=== PATIENT | male | born 1965 | race Caucasian/White ===

== ENCOUNTER 2018-06-25 10:20 | Emergency (ER) | payer SELFPAY ==
[2018-06-25 10:21] VITALS: BP 151/108; PULSE 83; RESP 18; TEMP 36.5; O2SAT 98; BMI 21.9
--- NOTE | 2018-06-25 10:35 | RAD_ITS ---
STUDY: X-RAY CHEST REASON FOR EXAM: Male, 52 years old. Chest pain TECHNIQUE: Single AP portable view of the chest. COMPARISON: None. FINDINGS: Cardiac monitoring leads overlie the chest. There is a subtle 1.8 cm rounded density adjacent to the left heart border. Question true nodule versus superimposition of structures. There is no demonstrated pleural abnormality. Normal size heart. Normal mediastinum and marlena. Normal visualized pulmonary arteries. There is mild calcification of the aortic arch. Normal visualized thoracic spine. Normal visualized ribs, clavicles, and shoulders. There is no demonstrated abnormality of the visualized soft tissue structures of the upper abdomen. RAD/Chest 1 View (Portable) IMPRESSION: Question nodule within the left mid to lower lung versus artifact from superimposed structures. A CT of the chest can be performed for further evaluation. Electronically Signed: Julio Watkins DO at 11:13 EDT Tel , Service support ,
--- NOTE | 2018-06-25 10:36 | ED.VISSUMM ---
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 was quite hot yesterday and today, nothing really makes the pain better or worse it is not exertional or sedation with any specific activity or food, he has no history of ND PE or DVT he does report family history and reports he is a smoker, he has had no fever he has had a chronic cough today the chest pain simply persisted he can planed to coworkers of the persistent chest pain he was asked to go to the emergency department He describes a sharp pain to the central sternum he is having no pain now resting comforting the bed Physical Examination: [] His vital signs are within normal range is in no distress head neck chest unremarkable lungs sound clear the heart tones are unremarkable abdomen soft nontender upper lower extremity remarkable without cyanosis clubbing or edema he has no complaints at this time pulses are symmetric Test Results: [] Emergency Department Course and Treatment: [] His EKG shows a sinus rhythm nothing acute given all the above and his age his complaints competence of screening labs evaluation are obtained Labs chest x-ray are all generally unremarkable see those reports there is a notation of a possible small nodule follow-up CT I discussed with the patient he understands and he will begin prefers outpatient management and will follow up with [place] [facility] for further evaluation of the chest pain in the nodule he does understand the concept of the nodule could represent early cancer Explained the need for additional therapeutic diagnostic management discussed inpatient versus outpatient management discussed the concept of angina ND sudden the patient reports he understood all that he does not wish to be admitted to the hospital he wants to be managed as an outpatient, he understands to return if symptoms change or intensify will start 1 adult aspirin a day he will be put off work for today and tomorrow seeking the pain is outpatient management and again he will return for change in symptoms he clearly has the capacity and understanding to make this decision Again he is remained asymptomatic in the department he wants to go home he is referred to [place] primary care for all the above Treatment Plan: [] Disposition: [] Home stable Impression: [] Sharp chest pain etiology unclear, nonspecific pulmonary nodule This note was generated with [employer] software. It may contain incorrect words, spelling, and punctuation that were not noted in review of the chart prior to signing ED Disposition - Plan for ED Patient: Chief Complaint: Chest Pain Referrals: Care Physician,No Primary [Primary Care Provider] -
[2018-06-25 10:43] LABS: Absolute Lymphocyte Count 2.46 X10^3/ul (0.83-4.51); Absolute Neutrophil Count 4.9 X10^3/uL (2.0-7.7); Basophil# 0.05 X10^3/uL; Basophil% 0.6 % (0-1); Eosinophil# 0.16 X10^3/uL; Eosinophils% 1.9 % (0-5); Hematocrit 45.6 % (40-54); Hemoglobin 15.5 g/dl (13.0-16.5); Lymphocyte # 2.46 X10^3/ul (4.0); Mean Corpuscular Hgb 33.1 pg (27.0-32.0); Mean Corpuscular Volume 97.4 fL (80-94); Mean Platelet Vol. 9.5 fl (6.2-12.0); Monocyte# 0.95 X10^3/uL; Monocyte% 11.2 % (0-10); Neutrophil # 4.86 X10^3/uL (2.7-7.7); Neutrophil % 57.2 % (47-70); POSITIVE COUNT NO; POSITIVE DIFFERENTIAL NO; POSITIVE MORPHOLOGY NO; Platelet Count 248 K/mm3 (150-450); RBC Distribution Width CV 13.1 % (11.6-14.6); RBC Distribution Width SD 46.5 fl (35.1-43.9); Red Blood Count 4.68 M/mm3 (4.6-6.2); White Blood Count 8.5 K/mm3 (4.4-11.0)
[2018-06-25] MEDS: 0.9% Normal Saline 1,000 ML 1000 ML IV (10:43)
[2018-06-25] MEDS: Aspirin 81 MG TAB.CHEW 324 MG PO (10:43)
[2018-06-25] MEDS: Morphine 4 MG/ML Syringe IV (10:44)
[2018-06-25] MEDS: Ondansetron 4 MG/2 ML Vial IV (10:44)
[2018-06-25 10:45] VITALS: O2SAT 96
[2018-06-25 10:54] LABS: Anion Gap 7 (5-15); BUN 13 mg/dL (7-18); BUN/Creat Ratio 15.2 RATIO (10-20); Calcium,Total 8.5 mg/dL (8.5-10.1); Chloride 110 mmol/L (98-107); Creatinine, Serum 0.86 mg/dL (0.70-1.30); EST Glomerular Filtration Rate 99 mL/min (>60); Est Glom Filt Rate - Afr Amer 119 mL/min (>60); Estimated Creatinine Clearance 102.06 ml/min; Glucose 89 mg/dL (74-106); Potassium 4.7 mmol/L (3.5-5.1); Sodium Level 144 mmol/L (136-145)
[2018-06-25 12:20] VITALS: BP 155/96; PULSE 63; RESP 18; O2SAT 97
--- NOTE | 2018-06-25 12:57 | ED.DEP ---
ED Disposition - Plan for ED Patient: Chief Complaint: Chest Pain Instructions: ED Chest Pain Atypical Unkn Cause Referrals: Care Physician,No Primary [Primary Care Provider] - Rey Mike MD [STAFF PHYSICIAN] - Additional Instructions: Please take 1 adult strength aspirin a day until seen, you will require additional management, he will also require follow-up for the pulmonary nodule to make sure it is not cancer
[2018-06-25 13:07] VITALS: BP 136/95; PULSE 66; RESP 16; O2SAT 98
== END 2018-06-25 13:08 | disposition home or self-care (01) ==
LOC: ED 11:02
PROVIDERS: Emergency Provider Emergency Medicine
DX: R07.9 Chest pain, unspecified (principal); R91.1 Solitary pulmonary nodule; F17.200 Nicotine dependence, unspecified, uncomplicated
CPT/HCPCS: 71045; 80048; 84484; 85025; 93005; 99285; A4216; J2405

== ENCOUNTER 2018-11-02 15:50 | Emergency (ER) | payer BC, MEDICAID, SELFPAY ==
[2018-11-02 15:52] VITALS: BP 155/99; PULSE 83; RESP 16; TEMP 36.4; O2SAT 98; BMI 23.3
--- NOTE | 2018-11-02 16:16 | ED.VISSUMM ---
- ER Visit Summary Date of Service: 11/02/18 Chief Complaint: Headache History of Present Illness: The patient is a 53 M presenting for evaluation secondary to headache. Patient reports over the course last 2 days he had a gradual onset of a frontal headache. He reports that it is a feeling of pain. Spin associated with rhinorrhea cough subjective fevers and chills. He denies any present sore throat. Denies any visual changes numbness or weakness. Denies any recent head trauma neck stiffness or abnormal skin rashes. Review of systems otherwise negative. Physical Examination: Vital signs: Within normal limits General: Well-nourished well-developed no acute distress Head: Normocephalic atraumatic, no temporal artery tenderness or vesicular rash noted. Bilateral frontal sinus tenderness to percussion Eyes: PERRLA, EOMI. Direct funduscopy shows no evidence of hemorrhage or papilledema. Neck: Supple, no lymphadenopathy, no JVD no meningismus. Negative Brudzinski, Kernig, jolt, and heel strike Cardiovascular: Heart regular rate and rhythm no murmurs Respiratory: Lung sounds clear to auscultation bilaterally no respiratory distress Abdomen: Soft, nontender Extremities: Nontender, no edema Skin: Normal color, no rash, no evidence of petechia Neuro: Alert and oriented ?4, cranial nerves II through XII intact, normal strength, sensation Test Results: None indicated Emergency Department Course and Treatment: Patient presented secondary to headache. History and physical exam seem consistent with sinusitis. Patient will be treated with Naprosyn, Sudafed, and Afrin. Disposition: Discharge Impression: 1. Sinusitis This note was generated with [employer] dictation software. It may contain incorrect words, spelling, and punctuation that were not noted in review of the chart prior to signing ED Disposition - Plan for ED Patient: Disposition: Home or Assisted Living Chief Complaint: Headache Diagnosis: Sinusitis Instructions: ED Headache Sinus Prescriptions: Naproxen [Naprosyn] 500 mg PO BID PRN #20 tab Pseudoephedrine HCl [Sudafed 12 Hour] 120 mg PO Q12H #12 tablet.er Referrals: Care Physician,No Primary [Primary Care Provider] - As Needed
[2018-11-02] MEDS: Oxymetazoline 0.05% 1 SPRAY SPRAY.BTL 2 SPRAY NASAL (16:40)
[2018-11-02] MEDS: Naproxen 375 MG Tablet 500 MG PO (16:40)
[2018-11-02 16:43] VITALS: BP 138/80; PULSE 88; RESP 16; O2SAT 98
--- OUTSIDE RECORDS SUMMARY | 2019-02-04 09:04 | XMS RPT_ITS ---
:1965 Author Organization [place] Care Team Providers Name Role Phone Primay Care Physicia, No Primary Care Unavailable Korey Canales Attending Unavailable Primay Care Physicia, No Primary Care Unavailable Varsha Nolen Attending Unavailable Primay Care Physicia, No Primary Care Unavailable Jwayyed, Sharhabeel Attending Unavailable Rodriguez, Yuval Attending Unavailable Rodriguez, Yuval Referring Unavailable Primay Care Physicia, No Primary Care Unavailable Rodriguez, Yuval Attending Unavailable Rodriguez, Yuval Referring Unavailable Rodriguez, Yuval Primary Care Unavailable Rodriguez, Yuval Attending Unavailable Rodriguez, Yuval Primary Care Unavailable PROBLEMS PROBLEMS DATE TYPE CONDITION / CODE ATTENDING STATUS SOURCE 08/20/2018 Unknown R07.9 - Chest Jwayyed, Active [place] pain, unspecified Sharhabeel [facility] / R07.9(ICD-10) Hospital Repository PROCEDURES PROCEDURES No Procedure Records FoundRESULTS RESULTS CHEST WITH CONTRAST Observed: 12/03/2018 Status: F Source: ARI 2:13 PM [facility] REPOSITORY [facility] Imaging Services [address] [place] [address] Chest WITH Contrast MR#: [id number] Acct: [id number] Name: SALVATORE LEONG Rep #: [id number] : 1965 M 53 From: Tom Doran MD PCP: Yuval Rodriguez MD Status: REG CLI Study: Chest WITH Contrast Date of Exam: 12/03/18 Exam# [id number] Ordering Dr: Yuval Rodriguez MD STUDY: CT CHEST WITH CONTRAST REASON FOR EXAM: Male, 53 years old. Lung nodule. RADIATION DOSAGE (If Supplied By Facility): CTDIvol = ( 10.86 ) mGy, DLP = ( 343.71 ) mGycm TECHNIQUE: Transaxial imaging was performed following intravenous administration of 80ML ml of Isovue 300 contrast material. Individualized dose optimization techniques were used for this CT. COMPARISON: Chest x-ray 11/23/2018. FINDINGS: There is hyperinflation of the lungs consistent with chronic obstructive lung disease (COPD). No infiltrates. No nodules or masses. There is no demonstrated pleural abnormality. Normal heart and pericardium. There are calcifications of the coronary arteries. Normal mediastinum. Normal hilar regions. Normal enhanced pulmonary arteries. Normal aorta arch and descending thoracic aorta. Normal osseous structures. There is no demonstrated abnormality of the visualized upper abdomen. CT/Chest WITH Contrast IMPRESSION: There are findings consistent with COPD. There is no evidence of acute chest disease. Electronically Signed: Tom Doran MD at 16:07 EST , Service support , CC: Yuval Rodriguez MD Billing Department Supervisor: Signed BASIC METABOLIC Collected: 11/27/2018 Status: F Source: [place] PROFILE (BMP) 10:45 AM [facility] REPOSITORY TYPE CODE TESTS RESULT OUT OF RANGE REFERENCE UNITS LAB L501.0100 74-106 mg/dL Normal GLU 81 Result Comment: Please note revised GLUCOSE reference range effective 2017. LAB L501.1000 7-18 mg/dL Normal BUN 7 LAB L501.1100 0.70-1.30 mg/dL Normal CREAT,SERUM 0.75 Result Comment: The validity of the calculated GFR AND GFRAA in patients over 70 years has not been determined. Clinical correlation is essential. LAB L501.1110 >60 mL/min Normal EST GFR 115 Result Comment: Non- GFR Calc LAB L501.1115 >60 mL/min Normal EST GFR - AA 139 Result Comment: GFR Calc LAB L501.1300 10-20 RATIO Low BUN/CRE 9.3 LAB L501.2200 8.5-10.1 mg/dL Normal CA 9.0 LAB L501.5300 136-145 mmol/L Normal NA 139 LAB L501.5600 3.5-5.1 mmol/L Normal K 4.6 LAB L501.5900 98-107 mmol/L Normal CL 102 LAB L501.6100 21.0-32.0 mmol/L Normal CO2 27.0 LAB L501.6200 5-15 Normal GAP 10 Performed By: #### L500.2500 #### [facility] [address], [address] CHEST 2 V W/ Observed: 11/23/2018 Status: F Source: ARI APICAL/LORDOTIC 9:29 AM [facility] REPOSITORY [facility] Imaging Services [address] [place] [address] Chest 2 V w/ Apical/Lordotic MR#: [id number] Acct: [id number] Name: SALVATORE LEONG Rep #: [id number] : 1965 M 53 From: Citlalli Yao MD PCP: Care Physician, No Primary Status: REG CLI Study: Chest 2 V w/ Apical/Lordotic Date of Exam: 11/23/18 Exam# [id number] Ordering Dr: Yuval Rodriguez MD STUDY: X-RAY CHEST REASON FOR EXAM: Male, 53 years old. Lung nodule. TECHNIQUE: PA, AP and lateral images of the chest COMPARISON: June 25, 2018 and November 18, 2018 FINDINGS: There is a persistent ill-defined nodular opacity within the left lower lung visualized on the PA image. The lungs are hyperinflated. Normal size heart. Normal mediastinum and marlena. Normal visualized pulmonary arteries. There is atherosclerotic calcification of the aortic arch with tortuosity. There are diffuse degenerative changes of the visualized thoracic spine. Normal visualized ribs, clavicles, and shoulders. There is no demonstrated abnormality of the visualized soft tissue structures of the upper abdomen. RAD/Chest 2 V w/ Apical/Lordotic IMPRESSION: Persistent nodular opacity within the left lower lung, consider CT for further characterization. Hyperinflated lungs suggesting underlying COPD. Electronically Signed: Citlalli Yao MD at 16:50 EST Tel , Service support , CC: No Primary Care Physician; Yuval Rodriguez MD Billing Department Supervisor: Signed 12 LEAD ELECTROCARDIOGRAM Observed: 11/20/2018 Status: F Source: [place] 2:38 PM [facility] REPOSITORY [facility] [place] [address] 12 Lead EKG 11/18/18 1419 MR#: [id number] Acct: [id number] Name: SLAVATORE LEONG Rep #: [id number] : 1965 53 From: Yuval Otero MD Attending Dr: Status: DEP ER Ordering Dr: Provider,Tj P. Date: 11/18/18 Location: ED Sex: M C Admitted: Test Reason : CP Blood Pressure : / mmHG Vent. Rate : 091 BPM Atrial Rate : 091 BPM P-R Int : 120 ms QRS Dur : 090 ms QT Int : 356 ms P-R-T Axes : 074 081 077 degrees QTc Int : 437 ms Normal sinus rhythm with sinus arrhythmia Normal ECG Confirmed by SHANNA SAUNDERS, YUVAL ([id number]), editor greeting card VICKI YOON ([id number]) on 11/20/2018 2:38:15 PM Referred By: HALEY Confirmed By:YUVAL OTERO MD 11/20/18 1438 Date Yuval Otero MD CC: No Primary Care Physician; Varsha Nolen MD; ED PHYSICIAN PROVIDER Signed EMERGENCY DEPARTMENT Observed: 11/18/2018 Status: F Source: [place] SUMMARY 4:25 PM [facility] REPOSITORY [facility] Medical Records Department [address] [place] [address] Emergency Department Summary 11/18/18 1621 MR#: [id number] Acct: [id number] Name: SALVATORE LEONG Rep #: [id number] : 1965 53 From: Varsha Nolen MD PCP: Care Physician, No Primary Status: REG ER - ER Visit Summary Date of Service: 11/18/18 Chief Complaint: Chest pain History of Present Illness: The patient is a 53 M presenting with chest pain. He states he had chest pain over the weekend. He states while at work today it worsened. 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 He states there was a midsternal chest pressure that was 7 out of 10. He denies radiation. He denies nausea vomiting. Denies diaphoresis. He had associated shortness of breath. He states the pain is now resolved. He has a family history of early heart disease and is a smoker. No other known risk factors. Physical Examination: Vitals are stable. Patient is afebrile. Alert no acute distress. HEENT exam is unremarkable. Neck is supple. Lungs are clear and equal bilaterally. Heart is regular rate and rhythm. Abdomen is soft nontender nondistended. Extremities are unremarkable. Skin is warm and dry. No focal neurologic deficit. Remainder of exam is unremarkable. Emergency Department Course and Treatment: EKG is sinus rate of 91. Chest x-ray shows questionable nodular density in the left midlung. Patient is aware of this finding and is aware that he needs to follow-up with a primary care physician. CBC, chemistries unremarkable. Troponin is negative. Patient was given aspirin. He remained pain-free in the emergency department. Due to his risk factors recommend admission for stress testing. Patient does not want to stay in the hospital. He is advised the risk of leaving AGAINST MEDICAL ADVICE including [place], permanent disability, and . Patient understands these risks and wishes to sign out AGAINST MEDICAL ADVICE. He would like to follow- up with a primary care physician. He is given Dr. Rodriguez production control coordinator for no doc. He was advised signs and symptoms for which to return to the ED. Disposition: Left AGAINST MEDICAL ADVICE Impression: Chest pain This note was generated with Threefold Photos dictation software. It may contain incorrect words, spelling, and punctuation that were not noted in review of the chart prior to signing ED Disposition - Plan for ED Patient: Chief Complaint: Chest Pain Instructions: ED Chest Pain Atypical Unkn Cause Referrals: Yuval Rodriguez MD [STAFF PHYSICIAN] - What to do if you have Problems For any increased pain, shortness of breath, bleeding, nausea or vomiting, chest pain, or any unexpected problems, contact your Primary Care Provider. Call [facility] ([phone]) or report to the closest Emergency Room. Call 911 if necessary. 11/18/18 7820 <Electronically signed by Varsha Nolen MD> Date Varsha Nolen MD Cosigner Signature (If Indicated): Date CC: No Primary Care Physician DISCHARGE INSTRUCTION Observed: 11/18/2018 Status: F Source: [place] 4:19 PM [facility] REPOSITORY [facility] Medical Records Department [address] [place] [address] Discharge Instruction 11/18/18 1618 MR#: [id number] Acct: [id number] Name: SALVATORE LEONG Rep #: [id number] : 1965 53 From: Varsha Nolen MD PCP: Care Physician, No Primary Status: PRE ER ED Disposition - Plan for ED Patient: Chief Complaint: Chest Pain Instructions: ED Chest Pain Atypical Unkn Cause Referrals: Yuval Rodriguez MD [STAFF PHYSICIAN] - What to do if you have Problems For any increased pain, shortness of breath, bleeding, nausea or vomiting, chest pain, or any unexpected problems, contact your Primary Care Provider. Call [facility] ([phone]) or report to the closest Emergency Room. Call 911 if necessary. 11/18/18 1619 <Electronically signed by Varsha Nolen MD> Date Varsha Nolen MD Cosigner Signature (If Indicated): Date CC: No Primary Care Physician CBC W/DIFF, AUTOMATED Collected: 11/18/2018 Status: F Source: [place] 2:45 PM [facility] REPOSITORY TYPE CODE TESTS RESULT OUT OF RANGE REFERENCE UNITS LAB L100.1000 4.4-11.0 K/mm3 Normal WBC 7.4 LAB L100.1200 4.6-6.2 M/mm3 Normal RBC 4.71 LAB L100.1300 13.0-16.5 g/dl Normal HGB 15.6 LAB L100.1400 40-54 % Normal HCT 45.3 LAB L100.1500 80-94 fL High MCV 96.2 LAB L100.1600 27.0-32.0 pg High MCH 33.1 LAB L100.1700 32-36 g/gl Normal MCHC 34.4 LAB L100.1810 11.6-14.6 % Normal RDW CV 13.2 LAB L100.1820 35.1-43.9 fl High RDW SD 47.0 LAB L100.1900 150-450 K/mm3 Normal PLT 261 LAB L100.2000 6.2-12.0 fl Normal MPV 9.6 LAB L100.2100 47-70 % Normal NEUT% 61.5 LAB L100.2200 19-41 % Normal LY% 25.3 LAB L100.2300 0-10 % High MONO% 11.8 LAB L100.2400 0-5 % Normal EO% 0.9 LAB L100.2500 0-1 % Normal BASO% 0.4 LAB L100.2550 0.0-0.9 % Normal IM GRAN % 0.100 Result Comment: IG% - Immature Granulocytes (promyelocytes, myelocytes and metamyelocytes) > 1% indicates that a LEFT SHIFT is Present. LAB L100.2620 2.0-7.7 X10 3/uL Normal Absolute Neut 4.5 LAB L100.2720 0.83-4.51 X10 3/ul Normal Absolute Lymph 1.87 Performed By: #### L100.0100 #### [facility] [address] [place], [address] BASIC METABOLIC Collected: 11/18/2018 Status: F Source: [facility] PROFILE ([facility]) 2:45 PM [facility] REPOSITORY TYPE CODE TESTS RESULT OUT OF RANGE REFERENCE UNITS LAB L501.0100 74-106 mg/dL Normal GLU 102 Result Comment: Fasting Glucose result from 100 to 125 mg/dL suggests IMPAIRED HOMEOSTASIS per A.D.A. criteria. Please note revised GLUCOSE reference range effective 2017. LAB L501.1000 7-18 mg/dL Normal BUN 14 LAB L501.1100 0.70-1.30 mg/dL Normal CREAT,SERUM 0.96 Result Comment: The validity of the calculated GFR AND GFRAA in patients over 70 years has not been determined. Clinical correlation is essential. LAB L501.1110 >60 mL/min Normal EST GFR 87 Result Comment: Non- GFR Calc LAB L501.1115 >60 mL/min Normal EST GFR - AA 105 Result Comment: GFR Calc LAB L501.1255 ml/min Normal Estimated CRCL 86.33 LAB L501.1300 10-20 RATIO Normal BUN/CRE 14.6 LAB L501.2200 8.5-10 mg/dL Normal .1 CA 8.8 LAB L501.5300 136-14 mmol/L Normal 5 NA 140 LAB L501.5600 3.5-5. mmol/L Normal 1 K 4.0 LAB L501.5900 98-107 mmol/L Normal CL 104 LAB L501.6100 21.0-3 mmol/L Normal 2.0 CO2 29.0 LAB L501.6200 5-15 Normal GAP 7 Performed By: #### L500.2500, L501.4010 #### [facility] [address] [facility] [place], [place], [address] TROPONIN-I Collected: 11/18/2018 Status: F Source: [place] 2:45 PM [facility] REPOSITORY TYPE CODE TESTS RESULT OUT OF RANGE REFERENCE UNITS LAB L501.4010 <0.045 ng/mL Normal < 0.015 TROPONIN-I Result Comment: TROPONIN-I EXPECTED VALUES <0.045 Negative 0.045 - 0.590 Consistent with Cardiac Damage > OR = 0.600 Critical Value Not every elevated troponin is indicative of [place]. These values should be used with clinical judgement in examining the patient's clinical picture for diagnosis. To establish a diagnosis of [place] versus myocardial injury, there must be a demonstrated rise and/or fall in the troponin values, in addition to ischemic symptoms, EKG changes, new regional wall motion abnormality, and/or angiographical evidence. PLEASE NOTE: REFERENCE RANGES EDITED 18 Performed By: #### L500.2500, L501.4010 #### [facility] [address] [facility] [place], [place], [address] CHEST 1 VIEW Observed: 11/18/2018 Status: F Source: [place] (PORTABLE) 2:13 PM [facility] REPOSITORY [facility] Imaging Services [address] [place] [address] Chest 1 View (Portable) MR#: [id number] Acct: [id number] Name: SALVATORE LEONG Rep #: [id number] : 1965 M 53 From: Gerardo John MD PCP: Care Physician, No Primary Status: PRE ER Study: Chest 1 View (Portable) Date of Exam: 11/18/18 Exam# [id number] Ordering Dr: Provider,Ed P. STUDY: X-RAY CHEST REASON FOR EXAM: Male, 53 years old. Chest pain. TECHNIQUE: Single AP portable view of the chest. COMPARISON: Comparison is made with prior study dated June 25, 2018. FINDINGS: Hyperinflation. Scattered calcified granulomas. Once again, a questionable faint nodular density is seen in the left midlung. This appears to have decreased in size as compared to prior study. A lordotic view is recommended for further evaluation. There is no demonstrated pleural abnormality. Normal size heart. Normal mediastinum and marlena. Normal visualized pulmonary arteries. Normal visualized aortic arch and descending thoracic aorta. Normal visualized thoracic spine. Normal visualized ribs, clavicles, and shoulders. There is no demonstrated abnormality of the visualized soft tissue structures of the upper abdomen. RAD/Chest 1 View (Portable) IMPRESSION: Questionable nodular density in the left midlung. A repeat lordotic view is recommended. Electronically Signed: Gerardo John MD at 16:00 EST Tel [phone], Service support , CC: No Primary Care Physician; ED PHYSICIAN PROVIDER Billing Department Supervisor: Signed EMERGENCY DEPARTMENT Observed: 11/03/2018 Status: F Source: [place] SUMMARY 12:19 AM [facility] REPOSITORY [facility] Medical Records Department [address] [place] [address] Emergency Department Summary 11/02/18 1616 MR#: [id number] Acct: [id number] Name: SALVATORE LEONG Rep #: [id number] : 1965 53 From: Korey Canales MD PCP: Care Physician, No Primary Status: DEP ER - ER Visit Summary Date of Service: 11/02/18 Chief Complaint: Headache History of Present Illness: The patient is a 53 M presenting for evaluation secondary to headache. Patient reports over the course last 2 days he had a gradual onset of a frontal headache. He reports that it is a feeling of pain. Spin associated with rhinorrhea cough subjective fevers and chills. He denies any present sore throat. Denies any visual changes numbness or weakness. Denies any recent head trauma neck stiffness or abnormal skin rashes. Review of systems otherwise negative. Physical Examination: Vital signs: Within normal limits General: Well-nourished well-developed no acute distress Head: Normocephalic atraumatic, no temporal artery tenderness or vesicular rash noted. Bilateral frontal sinus tenderness to percussion Eyes: PERRLA, EOMI. Direct funduscopy shows no evidence of hemorrhage or papilledema. Neck: Supple, no lymphadenopathy, no JVD no meningismus. Negative Brudzinski, Kernig, jolt, and heel strike Cardiovascular: Heart regular rate and rhythm no murmurs Respiratory: Lung sounds clear to auscultation bilaterally no respiratory distress Abdomen: Soft, nontender Extremities: Nontender, no edema Skin: Normal color, no rash, no evidence of petechia Neuro: Alert and oriented 4, cranial nerves II through XII intact, normal strength, sensation Test Results: None indicated Emergency Department Course and Treatment: Patient presented secondary to headache. History and physical exam seem consistent with sinusitis. Patient will be treated with Naprosyn, Sudafed, and Afrin. Disposition: Discharge Impression: 1. Sinusitis This note was generated with Threefold Photos dictation software. It may contain incorrect words, spelling, and punctuation that were not noted in review of the chart prior to signing ED Disposition - Plan for ED Patient: Disposition: Home or Assisted Living Chief Complaint: Headache Diagnosis: Sinusitis Instructions: ED Headache Sinus Prescriptions: Naproxen [Naprosyn] 500 mg PO BID PRN #20 tab Pseudoephedrine HCl [Sudafed 12 Hour] 120 mg PO Q12H #12 tablet.er Referrals: Care Physician,No Primary [Primary Care Provider] - As Needed What to do if you have Problems For any increased pain, shortness of breath, bleeding, nausea or vomiting, chest pain, or any unexpected problems, contact your Primary Care Provider. Call [facility] ([phone]) or report to the closest Emergency Room. Call 911 if necessary. 11/03/18 0019 <Electronically signed by Korey Canales MD> Date Korey Canales MD Cosigner Signature (If Indicated): Date CC: No Primary Care Physician 12 LEAD ELECTROCARDIOGRAM Observed: 06/29/2018 Status: F Source: [place] 3:08 PM [facility] REPOSITORY [facility] Cardiovascular Services [address] [place] [address] 12 Lead EKG 06/25/18 1022 MR#: [id number] Acct: [id number] Name: SALVATORE LEONG Rep #: [id number] : 1965 52 From: Venancio Mane MD Attending Dr: Status: DEP ER Ordering Dr: Bridgette Alejandra MD Date: 06/25/18 Location: ED Sex: M C Admitted: Test Reason : CHESTPAIN Blood Pressure : / mmHG Vent. Rate : 081 BPM Atrial Rate : 081 BPM P-R Int : 114 ms QRS Dur : 082 ms QT Int : 366 ms P-R-T Axes : 034 040 038 degrees QTc Int : 425 ms Sinus rhythm with Premature atrial complexes Otherwise normal ECG Confirmed by VENANCIO MANE MD ([id number]), editor greeting card VICKI YOON ([id number]) on 06/29/2018 3:08:16 PM Referred By: ZEFERINO 06/29/18 1508 Date Venancio Mane MD CC: MD Rayshawn Alejandra; No Primary Care Physician Signed EMERGENCY DEPARTMENT Observed: 06/25/2018 Status: F Source: [place] SUMMARY 3:34 PM [facility] REPOSITORY [facility] Medical Records Department [address] [place] [address] Emergency Department Summary 06/25/18 1036 MR#: [id number] Acct: [id number] Name: SALVATORE LEONG Rep #: [id number] : 1965 52 From: Bridgette Alejandra MD PCP: Care Physician, No Primary Status: DEP ER 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 was quite hot yesterday and today, nothing really makes the pain better or worse it is not exertional or sedation with any specific activity or food, he has no history of [place] PE or DVT he does report family history and reports he is a smoker, he has had no fever he has had a chronic cough today the chest pain simply persisted he can planed to coworkers of the persistent chest pain he was asked to go to the emergency department He describes a sharp pain to the central sternum he is having no pain now resting comforting the bed Physical Examination: [] His vital signs are within normal range is in no distress head neck chest unremarkable lungs sound clear the heart tones are unremarkable abdomen soft nontender upper lower extremity remarkable without cyanosis clubbing or edema he has no complaints at this time pulses are symmetric Test Results: [] Emergency Department Course and Treatment: [] His EKG shows a sinus rhythm nothing acute given all the above and his age his complaints competence of screening labs evaluation are obtained Labs chest x-ray are all generally unremarkable see those reports there is a notation of a possible small nodule follow-up CT I discussed with the patient he understands and he will begin prefers outpatient management and will follow up with [facility] primary care for further evaluation of the chest pain in the nodule he does understand the concept of the nodule could represent early cancer Explained the need for additional therapeutic diagnostic management discussed inpatient versus outpatient management discussed the concept of angina [place] sudden the patient reports he understood all that he does not wish to be admitted to the hospital he wants to be managed as an outpatient, he understands to return if symptoms change or intensify will start 1 adult aspirin a day he will be put off work for today and tomorrow seeking the pain is outpatient management and again he will return for change in symptoms he clearly has the capacity and understanding to make this decision Again he is remained asymptomatic in the department he wants to go home he is referred to [facility] primary care for all the above Treatment Plan: [] Disposition: [] Home stable Impression: [] Sharp chest pain etiology unclear, nonspecific pulmonary nodule This note was generated with [employer] dictation software. It may contain incorrect words, spelling, and punctuation that were not noted in review of the chart prior to signing ED Disposition - Plan for ED Patient: Chief Complaint: Chest Pain Referrals: Care Physician,No Primary [Primary Care Provider] - What to do if you have Problems For any increased pain, shortness of breath, bleeding, nausea or vomiting, chest pain, or any unexpected problems, contact your Primary Care Provider. Call [facility] ([phone]) or report to the closest Emergency Room. Call 911 if necessary. 06/25/18 1534 <Electronically signed by Bridgette Alejandra MD> Date Bridgette Alejandra MD Cosigner Signature (If Indicated): Date CC: No Primary Care Physician DISCHARGE INSTRUCTION Observed: 06/25/2018 Status: F Source: ARI 12:58 PM [facility] REPOSITORY [facility] Medical Records Department [address] [facility] [place] [address] Discharge Instruction 06/25/18 1257 MR#: [id number] Acct: [id number] Name: DANGSALVATORE Rep #: [id number] : 1965 52 From: Bridgette Alejandra MD PCP: Care Physician, No Primary Status: REG ER ED Disposition - Plan for ED Patient: Chief Complaint: Chest Pain Instructions: ED Chest Pain Atypical Unkn Cause Referrals: Care Physician,No Primary [Primary Care Provider] - Rey Mike MD [STAFF PHYSICIAN] - Additional Instructions: Please take 1 adult strength aspirin a day until seen, you will require additional management, he will also require follow-up for the pulmonary nodule to make sure it is not cancer What to do if you have Problems For any increased pain, shortness of breath, bleeding, nausea or vomiting, chest pain, or any unexpected problems, contact your Primary Care Provider. Call [facility] ([phone]) or report to the closest Emergency Room. Call 911 if necessary. 06/25/18 1884 <Electronically signed by Bridgette Alejandra MD> Date Bridgette Alejandra MD Cosigner Signature (If Indicated): Date CC: No Primary Care Physician CHEST 1 VIEW Observed: 06/25/2018 Status: F Source: [place] (PORTABLE) 10:36 AM [facility] REPOSITORY [facility] Imaging Services [address] [place] [address] Chest 1 View (Portable) MR#: [id number] Acct: [id number] Name: SALVATORE LEONG Rep #: [id number] : 1965 M 52 From: Julio Watkins DO PCP: Care Physician, No Primary Status: REG ER Study: Chest 1 View (Portable) Date of Exam: 06/25/18 Exam# [id number] Ordering Dr: Bridgette Alejandra MD STUDY: X-RAY CHEST REASON FOR EXAM: Male, 52 years old. Chest pain TECHNIQUE: Single AP portable view of the chest. COMPARISON: None. FINDINGS: Cardiac monitoring leads overlie the chest. There is a subtle 1.8 cm rounded density adjacent to the left heart border. Question true nodule versus superimposition of structures. There is no demonstrated pleural abnormality. Normal size heart. Normal mediastinum and marlena. Normal visualized pulmonary arteries. There is mild calcification of the aortic arch. Normal visualized thoracic spine. Normal visualized ribs, clavicles, and shoulders. There is no demonstrated abnormality of the visualized soft tissue structures of the upper abdomen. RAD/Chest 1 View (Portable) IMPRESSION: Question nodule within the left mid to lower lung versus artifact from superimposed structures. A CT of the chest can be performed for further evaluation. Electronically Signed: Julio Watkins DO at 11:13 EDT Tel , Service support , CC: MD Rayshawn Alejandra; No Primary Care Physician Billing Department Supervisor: Signed CBC W/DIFF, AUTOMATED Collected: 06/25/2018 Status: F Source: [place] 10:24 AM [facility] REPOSITORY TYPE CODE TESTS RESULT OUT OF RANGE REFERENCE UNITS LAB L100.1000 4.4-11.0 K/mm3 Normal WBC 8.5 LAB L100.1200 4.6-6.2 M/mm3 Normal RBC 4.68 LAB L100.1300 13.0-16.5 g/dl Normal HGB 15.5 LAB L100.1400 40-54 % Normal HCT 45.6 LAB L100.1500 80-94 fL High MCV 97.4 LAB L100.1600 27.0-32.0 pg High MCH 33.1 LAB L100.1700 32-36 g/gl Normal MCHC 34.0 LAB L100.1810 11.6-14.6 % Normal RDW CV 13.1 LAB L100.1820 35.1-43.9 fl High RDW SD 46.5 LAB L100.1900 150-450 K/mm3 Normal PLT 248 LAB L100.2000 6.2-12.0 fl Normal MPV 9.5 LAB L100.2100 47-70 % Normal NEUT% 57.2 LAB L100.2200 19-41 % Normal LY% 29.0 LAB L100.2300 0-10 % High MONO% 11.2 LAB L100.2400 0-5 % Normal EO% 1.9 LAB L100.2500 0-1 % Normal BASO% 0.6 LAB L100.2550 0.0-0.9 % Normal IM GRAN % 0.100 Result Comment: IG% - Immature Granulocytes (promyelocytes, myelocytes and metamyelocytes) > 1% indicates that a LEFT SHIFT is Present. LAB L100.2620 2.0-7.7 X10 3/uL Normal Absolute Neut 4.9 LAB L100.2720 0.83-4.51 X10 3/ul Normal Absolute Lymph 2.46 Performed By: #### L100.0100 #### [facility] [address] [place], [address] BASIC METABOLIC Collected: 06/25/2018 Status: F Source: [place] PROFILE ([facility]) 10:24 AM [facility] REPOSITORY TYPE CODE TESTS RESULT OUT OF RANGE REFERENCE UNITS LAB L501.0100 74-106 mg/dL Normal GLU 89 Result Comment: Please note revised GLUCOSE reference range effective 2017. LAB L501.1000 7-18 mg/dL Normal BUN 13 LAB L501.1100 0.70-1.30 mg/dL Normal CREAT,SERUM 0.86 Result Comment: The validity of the calculated GFR AND GFRAA in patients over 70 years has not been determined. Clinical correlation is essential. LAB L501.1110 >60 mL/min Normal EST GFR 99 Result Comment: Non- GFR Calc LAB L501.1115 >60 mL/min Normal EST GFR - AA 119 Result Comment: GFR Calc LAB L501.1255 ml/min Normal Estimated CRCL 102.06 LAB L501.1300 10-20 RATIO BUN/CRE Normal 15.2 LAB L501.2200 8.5-10 mg/dL .1 CA Normal 8.5 LAB L501.5300 136-14 mmol/L 5 NA Normal 144 LAB L501.5600 3.5-5. mmol/L 1 K Normal 4.7 LAB L501.5900 98-107 mmol/L High CL 110 LAB L501.6100 21.0-3 mmol/L 2.0 CO2 Normal 27.0 LAB L501.6200 5-15 GAP Normal 7 Performed By: #### L500.2500, L501.4010 #### [facility] [address] [place], [address] TROPONIN-I Collected: 06/25/2018 Status: F Source: [place] 10:24 AM [facility] REPOSITORY TYPE CODE TESTS RESULT OUT OF RANGE REFERENCE UNITS LAB L501.4010 <0.045 ng/mL Normal < 0.015 TROPONIN-I Result Comment: TROPONIN-I EXPECTED VALUES <0.045 Negative 0.045 - 0.590 Consistent with Cardiac Damage > OR = 0.600 Critical Value Not every elevated troponin is indicative of [place]. These values should be used with clinical judgement in examining the patient's clinical picture for diagnosis. To establish a diagnosis of [place] versus myocardial injury, there must be a demonstrated rise and/or fall in the troponin values, in addition to ischemic symptoms, EKG changes, new regional wall motion abnormality, and/or angiographical evidence. PLEASE NOTE: REFERENCE RANGES EDITED 18 Performed By: #### L500.2500, L501.4010 #### [facility] [address] [place], [address] ALLERGIES ALLERGIES DATE TYPE / CODE NAME / CODE REACTION SEVERITY SOURCE 11/18/2018 Drug No Known Unknown [facility] Allergy/4160 Allergies/F00 [facility] [address]50(SNOMED [id number](RXNOR Repository CT) M) ENCOUNTERS ENCOUNTERS ADMIT/DISCHARGE ACCOUNT ADMITTING ENCOUNTER LOCATION SOURCE NUMBER CLASS 12/03/2018 [id number] Ambulatory [place] 3 [facility] ing:CT Repository 11/27/2018 [id number] Ambulatory [place] Ari 7 [facility] ing:MFPLAB Repository 11/23/2018 [id number] Ambulatory Ari [place] 8 [facility] ing:MTRAD Repository 11/18/2018/ [id number] Emergency Ari Ari 9 5 [facility] ing:ED Repository 11/02/2018/ [id number] Emergency [place] Ari 8 1 [facility] ing:ED Repository 06/25/2018/ [id number] Emergency Ari [place] 8 4 [facility] ing:ED Repository PAYERS PAYERS ENCOUNTER GUARANTOR PAYER SUBSCRIBER SOURCE 12/03/2018 SALVATORE Fernandez Primary SALVATORE Fernandez Ari [id number] GAS[place] Insurance:ANTHEMPolic ALLEMANDOB: Community [address], y [facility]: [id number] [address]Wxp: [id number] Repository Date:8037-26-34NV [address] () [id number] [place] [address]FF: 12/03/2018 Secondary NOT GIVENUNK [place] Insurance:SELF PAY [facility] Number: Effective Repository Date:2018-11-25 11/27/2018 SALVATORE Fernandez Primary SALVATORE Fernandez Ari [id number] [place] Insurance:ANTHEMPolic ALLEMANDOB: Community [address], y Number: [id number] [address]Enf: [id number] Repository Date:3733-76-20[address] () [id number], [place] [address]VW: 11/27/2018 Secondary NOT GIVENUNK Ari Insurance:SELF PAY [facility] Number: Effective Repository Date:2018-11-27 11/23/2018 SALVATORE Fernandez Primary SALVATORE Fernandez Ari [id number] [place]AS[place] Insurance:ANTHEMPolic ALLEMANDOB: Community [address], y Number: [id number] [address]Nlt: [id number] Repository Date:5920-21-24SB [address] () [place], [place] [address]KK: 11/23/2018 Secondary NOT GIVENUNK Ari Insurance:SELF PAY [facility] Number: Effective Repository Date:2018-11-23 11/18/2018 SALVATORE Fernandez Primary NOT GIVENUNK Ari [id number] [place] Insurance:SELF PAY [place] [address] [place] [address]su: Number: Effective Repository Date:2018-11-18 () 11/02/2018 SALVATORE Fernandez Primary SALVATORE Chapman [id number] GAS Insurance:CARESOURCEP ALLEMANDOB: [facility] cosmo SUBRAMANIAN Number: [id number] [facility] [address]Jkx: [id number] Repository Date:2018-11-02P O () [address]ATTN: [place] [address]FD: 11/02/2018 Secondary NOT GIVENUNK [place] Insurance:SELF PAY [facility] Number: Effective Repository Date:2018-11-02 06/25/2018 Salvatore Fernandez Primary NOT GIVENUNK [place] [id number] [address] Insurance:SELF PAY [facility] [address]Cmb: Number: Effective Repository Date:2018-06-25 ()
== END 2018-11-02 16:52 | disposition home or self-care (01) ==
PROVIDERS: Emergency Provider Emergency Medicine
DX: J32.9 Chronic sinusitis, unspecified (principal); R05 Cough; Z72.0 Tobacco use
CPT/HCPCS: 99283

== ENCOUNTER 2018-11-18 14:09 | Emergency (ER) | payer SELFPAY ==
[2018-11-18 14:09] VITALS: BP 123/113; PULSE 97; RESP 18; TEMP 36.6; O2SAT 97; BMI 20.9
--- NOTE | 2018-11-18 14:12 | EKG12_ITS ---
Test Reason : CP Blood Pressure : / mmHG Vent. Rate : 091 BPM Atrial Rate : 091 BPM P-R Int : 120 ms QRS Dur : 090 ms QT Int : 356 ms P-R-T Axes : 074 081 077 degrees QTc Int : 437 ms Normal sinus rhythm with sinus arrhythmia Normal ECG Confirmed by SHANNA SAUNDERS, BEHZAD ([id number]), book or script editor VICKI YOON ([id number]) on 11/20/2018 2:38:15 PM Referred By: HALEY Confirmed By:BEHZAD OTERO MD
[2018-11-18 14:51] LABS: Absolute Lymphocyte Count 1.87 X10^3/ul (0.83-4.51); Absolute Neutrophil Count 4.5 X10^3/uL (2.0-7.7); Basophil# 0.03 X10^3/uL; Basophil% 0.4 % (0-1); Eosinophil# 0.07 X10^3/uL; Eosinophils% 0.9 % (0-5); Hematocrit 45.3 % (40-54); Hemoglobin 15.6 g/dl (13.0-16.5); Lymphocyte # 1.87 X10^3/ul (4.0); Lymphocyte % 25.3 % (19-41); Mean Corp Hgb Conc 34.4 g/gl (32-36); Mean Corpuscular Hgb 33.1 pg (27.0-32.0); Mean Corpuscular Volume 96.2 fL (80-94); Mean Platelet Vol. 9.6 fl (6.2-12.0); Monocyte# 0.87 X10^3/uL; Monocyte% 11.8 % (0-10); Neutrophil # 4.53 X10^3/uL (2.7-7.7); Neutrophil % 61.5 % (47-70); Platelet Count 261 K/mm3 (150-450); RBC Distribution Width CV 13.2 % (11.6-14.6); Red Blood Count 4.71 M/mm3 (4.6-6.2); White Blood Count 7.4 K/mm3 (4.4-11.0)
[2018-11-18 14:52] LABS: POSITIVE COUNT NO; POSITIVE DIFFERENTIAL NO; POSITIVE MORPHOLOGY NO
[2018-11-18 15:07] LABS: Anion Gap 7 (5-15); BUN 14 mg/dL (7-18); BUN/Creat Ratio 14.6 RATIO (10-20); Calcium,Total 8.8 mg/dL (8.5-10.1); Chloride 104 mmol/L (98-107); Creatinine, Serum 0.96 mg/dL (0.70-1.30); EST Glomerular Filtration Rate 87 mL/min (>60); Est Glom Filt Rate - Afr Amer 105 mL/min (>60); Estimated Creatinine Clearance 86.33 ml/min; Glucose 102 mg/dL (74-106); Sodium Level 140 mmol/L (136-145)
--- NOTE | 2018-11-18 15:40 | RAD_ITS ---
STUDY: X-RAY CHEST REASON FOR EXAM: Male, 53 years old. Chest pain. TECHNIQUE: Single AP portable view of the chest. COMPARISON: Comparison is made with prior study dated June 25, 2018. FINDINGS: Hyperinflation. Scattered calcified granulomas. Once again, a questionable faint nodular density is seen in the left midlung. This appears to have decreased in size as compared to prior study. A lordotic view is recommended for further evaluation. There is no demonstrated pleural abnormality. Normal size heart. Normal mediastinum and marlena. Normal visualized pulmonary arteries. Normal visualized aortic arch and descending thoracic aorta. Normal visualized thoracic spine. Normal visualized ribs, clavicles, and shoulders. There is no demonstrated abnormality of the visualized soft tissue structures of the upper abdomen. RAD/Chest 1 View (Portable) IMPRESSION: Questionable nodular density in the left midlung. A repeat lordotic view is recommended. Electronically Signed: Gerardo John MD at 16:00 EST Tel [phone], Service support ,
[2018-11-18 15:51] VITALS: BP 160/90; PULSE 68; RESP 19; O2SAT 100; O2SAT 99
[2018-11-18 16:17] VITALS: BP 155/98; PULSE 66; RESP 15; O2SAT 98
--- NOTE | 2018-11-18 16:18 | ED.DEP ---
ED Disposition - Plan for ED Patient: Chief Complaint: Chest Pain Instructions: ED Chest Pain Atypical Unkn Cause Referrals: Yuval Rodriguez MD [STAFF PHYSICIAN] -
--- NOTE | 2018-11-18 16:22 | ED.DCSUM_ITS ---
- ER Visit Summary Date of Service: 11/18/18 Chief Complaint: Chest pain History of Present Illness: The patient is a 53 M presenting with chest pain. He states he had chest pain over the weekend. He states while at work today it worsened. 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 He states there was a midsternal chest pressure that was 7 out of 10. He denies radiation. He denies nausea vomiting. Denies diaphoresis. He had associated shortness of breath. He states the pain is now resolved. He has a family history of early heart disease and is a smoker. No other known risk factors. Physical Examination: Vitals are stable. Patient is afebrile. Alert no acute distress. HEENT exam is unremarkable. Neck is supple. Lungs are clear and equal bilaterally. Heart is regular rate and rhythm. Abdomen is soft nontender nondistended. Extremities are unremarkable. Skin is warm and dry. No focal neurologic deficit. Remainder of exam is unremarkable. Emergency Department Course and Treatment: EKG is sinus rate of 91. Chest x-ray shows questionable nodular density in the left midlung. Patient is aware of this finding and is aware that he needs to follow-up with a primary care physician. CBC, chemistries unremarkable. Troponin is negative. Patient was given aspirin. He remained pain-free in the emergency department. Due to his risk factors recommend admission for stress testing. Patient does not want to stay in the hospital. He is advised the risk of leaving AGAINST MEDICAL ADVICE including HI, permanent disability, and . Patient understands these risks and wishes to sign out AGAINST MEDICAL ADVICE. He would like to follow-up with a primary care physician. He is given Dr. Rodriguez glassware maker demonstrator for no doc. He was advised signs and symptoms for which to return to the ED. Disposition: Left AGAINST MEDICAL ADVICE Impression: Chest pain This note was generated with [employer] dictation software. It may contain incorrect words, spelling, and punctuation that were not noted in review of the chart prior to signing ED Disposition - Plan for ED Patient: Chief Complaint: Chest Pain Instructions: ED Chest Pain Atypical Unkn Cause Referrals: Yuval Rodriguez MD [STAFF PHYSICIAN] -
[2018-11-18 16:39] VITALS: BP 155/98; PULSE 72; RESP 16; O2SAT 98
[2018-11-18] MEDS: Aspirin 325 MG Tablet PO (16:39)
== END 2018-11-18 16:40 | disposition left against medical advice (07) ==
LOC: ED 16:20
PROVIDERS: Emergency Provider Emergency Medicine
DX: R07.9 Chest pain, unspecified (principal); R06.00 Dyspnea, unspecified; Z72.0 Tobacco use; Z82.49 Family history of ischemic heart disease and other diseases of the circulatory system
CPT/HCPCS: 71045; 80048; 84484; 85025; 93005; 99285; A4216

== ENCOUNTER → 2018-11-23 09:20 | Outpatient (CLI) | payer BC, SELFPAY ==
[2018-11-18 14:09] VITALS: BMI 20.9
--- NOTE | 2018-11-23 09:24 | RAD_ITS ---
STUDY: X-RAY CHEST REASON FOR EXAM: Male, 53 years old. Lung nodule. TECHNIQUE: PA, AP and lateral images of the chest COMPARISON: June 25, 2018 and November 18, 2018 FINDINGS: There is a persistent ill-defined nodular opacity within the left lower lung visualized on the PA image. The lungs are hyperinflated. Normal size heart. Normal mediastinum and marlena. Normal visualized pulmonary arteries. There is atherosclerotic calcification of the aortic arch with tortuosity. There are diffuse degenerative changes of the visualized thoracic spine. Normal visualized ribs, clavicles, and shoulders. There is no demonstrated abnormality of the visualized soft tissue structures of the upper abdomen. RAD/Chest 2 V w/ Apical/Lordotic IMPRESSION: Persistent nodular opacity within the left lower lung, consider CT for further characterization. Hyperinflated lungs suggesting underlying COPD. Electronically Signed: Citlalli Yao MD at 16:50 EST Tel , Service support ,
== END ==
LOC: MTRAD 09:22
PROVIDERS: Referring Provider Family Medicine; Visit Provider Family Medicine
DX: R91.1 Solitary pulmonary nodule (principal)
CPT/HCPCS: 71046; 71047

== ENCOUNTER → 2018-11-27 10:43 | Outpatient (CLI) | payer BC, SELFPAY ==
[2018-11-18 14:09] VITALS: BMI 20.9
[2018-11-27 12:37] LABS: Anion Gap 10 (5-15); BUN 7 mg/dL (7-18); BUN/Creat Ratio 9.3 RATIO (10-20); Chloride 102 mmol/L (98-107); Creatinine, Serum 0.75 mg/dL (0.70-1.30); EST Glomerular Filtration Rate 115 mL/min (>60); Est Glom Filt Rate - Afr Amer 139 mL/min (>60); Glucose 81 mg/dL (74-106); Potassium 4.6 mmol/L (3.5-5.1); Sodium Level 139 mmol/L (136-145)
== END ==
PROVIDERS: Family Provider Family Medicine; PCP Family Medicine; Visit Provider Family Medicine
DX: R91.1 Solitary pulmonary nodule (principal)
CPT/HCPCS: 36415; 80048

== ENCOUNTER → 2018-12-03 14:08 | Outpatient (CLI) | payer BC, SELFPAY ==
[2018-11-18 14:09] VITALS: BMI 20.9
--- NOTE | 2018-12-03 14:12 | CT_ITS ---
STUDY: CT CHEST WITH CONTRAST REASON FOR EXAM: Male, 53 years old. Lung nodule. RADIATION DOSAGE (If Supplied By Facility): CTDIvol = ( 10.86 ) mGy, DLP = ( 343.71 ) mGycm TECHNIQUE: Transaxial imaging was performed following intravenous administration of 80ML ml of Isovue 300 contrast material. Individualized dose optimization techniques were used for this CT. COMPARISON: Chest x-ray 11/23/2018. FINDINGS: There is hyperinflation of the lungs consistent with chronic obstructive lung disease (COPD). No infiltrates. No nodules or masses. There is no demonstrated pleural abnormality. Normal heart and pericardium. There are calcifications of the coronary arteries. Normal mediastinum. Normal hilar regions. Normal enhanced pulmonary arteries. Normal aorta arch and descending thoracic aorta. Normal osseous structures. There is no demonstrated abnormality of the visualized upper abdomen. CT/Chest WITH Contrast IMPRESSION: There are findings consistent with COPD. There is no evidence of acute chest disease. Electronically Signed: Tom Doran MD at 16:07 EST , Service support ,
--- OUTSIDE RECORDS SUMMARY | 2019-02-07 09:14 | XMS RPT_ITS ---
:1965 Author Organization [place] Care Team Providers Name Role Phone Primay Care Physicia, No Primary Care Unavailable Korey Canales Attending Unavailable Primay Care Physicia, No Primary Care Unavailable Varsah Nolen Attending Unavailable Primay Care Physicia, No [...] 08/20/2018 Unknown R07.9 - Chest Jwayyed, Active [place] pain, unspecified Sharhabeel [facility] / R07.9(ICD-10) Hospital Repository PROCEDURES PROCEDURES No Procedure Records FoundRESULTS RESULTS CHEST WITH CONTRAST Observed: 12/03/2018 Status: F Source: ARI 2:13 PM [facility] REPOSITORY [facility] Imaging Services [address] [place] [address] Chest WITH Contrast MR#: [id number] Acct: [id number] Name: SALVATORE LEONG Rep #: [id number] : 1965 M 53 From: Tom Doran MD PCP: Yuval Rodriguez MD Status: REG CLI Study: Chest WITH Contrast Date of Exam: 12/03/18 Exam# [id number] Ordering Dr: Yuval Rodriguez MD STUDY: CT [...] Service support , CC: Yuval Rodriguez MD Extracorporeal Technician: Signed BASIC METABOLIC Collected: 11/27/2018 Status: F Source: [place] PROFILE (BMP) 10:45 AM [facility] REPOSITORY TYPE CODE TESTS RESULT OUT OF [...] GAP 10 Performed By: #### L500.2500 #### [facility] Laboratory [address] [place], [address] CHEST 2 V W/ Observed: 11/23/2018 Status: F Source: ARI APICAL/LORDOTIC 9:29 AM [facility] REPOSITORY [facility] Imaging Services [address] [place] [address] Chest 2 V w/ Apical/Lordotic MR#: [id number] Acct: [id number] Name: SALVATORE LEONG Rep #: [id number] : 1965 M 53 From: Citlalli Yao MD PCP: Care Physician, No Primary Status: REG CLI Study: Chest 2 V w/ Apical/Lordotic Date of Exam: 11/23/18 Exam# [id number] Ordering Dr: Yuval Rodriguez MD STUDY: X-RAY [...] No Primary Care Physician; Yuval Rodriguez MD Extracorporeal Technician: Signed 12 LEAD ELECTROCARDIOGRAM Observed: 11/20/2018 Status: F Source: [place] 2:38 PM [facility] REPOSITORY [facility] [place] [address] 12 Lead EKG 11/18/18 1419 MR#: [id number] Acct: [id number] Name: SALVATORE LEONG Rep #: [id number] : 1965 53 From: Yuval Oetro MD Attending Dr: Status: DEP ER Ordering [...] ECG Confirmed by SHANNA SAUNDERS, YUVAL ([id number]), editorial manager VICKI YOON ([id number]) on 11/20/2018 2:38:15 PM Referred By: HALEY Confirmed By:YUVAL OTERO MD 11/20/18 1438 Date Yuval Otero MD CC: No Primary Care Physician; Varsha Nolen MD; ED PHYSICIAN PROVIDER Signed EMERGENCY DEPARTMENT Observed: 11/18/2018 Status: F Source: [place] SUMMARY 4:25 PM [facility] REPOSITORY [facility] Medical Records Department [address] [place] [address] Emergency Department Summary 11/18/18 1621 MR#: [id number] Acct: [id number] Name: SALVATORE LEONG Rep #: [id number] : 1965 53 From: Varsha Nloen MD PCP: Care Physician, No Primary Status: [...] risk of leaving AGAINST MEDICAL ADVICE including AL, permanent disability, and . Patient understands these risks and wishes to sign out AGAINST MEDICAL ADVICE. He would like to follow- up with a primary care physician. 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 He was advised signs and symptoms for which to return to the ED. Disposition: Left AGAINST MEDICAL ADVICE Impression: Chest pain This note was generated with [employer] dictation software. It may contain incorrect words, [...] your Primary Care Provider. Call [facility] ([phone]) or report to the closest Emergency Room. Call 911 if necessary. 11/18/18 7464 <Electronically signed by Varsha Nolen MD> Date Varsha Nolen MD Cosigner Signature (If Indicated): Date CC: No Primary Care Physician DISCHARGE INSTRUCTION Observed: 11/18/2018 Status: F Source: [place] 4:19 PM [facility] REPOSITORY [facility] Medical Records Department [address] [place] [address] Discharge Instruction 11/18/18 1618 MR#: [id number] Acct: [id number] Name: SALVATORE LEONG Rep #: [id number] : 1965 53 From: Varsha Nolen MD [...] your Primary Care Provider. Call [facility] ([phone]) or report to the closest Emergency Room. Call 911 if necessary. 11/18/18 1619 <Electronically signed by Varsha Nolen MD> Date Varsha Nolen MD Cosigner Signature (If Indicated): Date CC: No Primary Care Physician CBC W/DIFF, AUTOMATED Collected: 11/18/2018 Status: F Source: [place] 2:45 PM [facility] REPOSITORY TYPE CODE TESTS RESULT OUT OF [...] Lymph 1.87 Performed By: #### L100.0100 #### [facility] Laboratory [address] [place], [address] BASIC METABOLIC Collected: 11/18/2018 Status: F Source: [place] PROFILE ([facility]) 2:45 PM [facility] REPOSITORY TYPE CODE TESTS RESULT OUT OF [...] 7 Performed By: #### L500.2500, L501.4010 #### [facility] Laboratory [address] [facility] [place], [place], [address] TROPONIN-I Collected: 11/18/2018 Status: F Source: [place] 2:45 PM [facility] REPOSITORY TYPE CODE TESTS RESULT OUT OF RANGE REFERENCE UNITS LAB L501.4010 <0.045 ng/mL Normal < 0.015 TROPONIN-I Result Comment: TROPONIN-I EXPECTED VALUES <0.045 Negative 0.045 - 0.590 Consistent with Cardiac Damage > OR = 0.600 Critical Value Not every elevated troponin is indicative of AL. These values should be used with clinical judgement in examining the patient's clinical picture for diagnosis. To establish a diagnosis of AL versus myocardial injury, there must be a demonstrated rise and/or fall in the troponin values, in addition to ischemic symptoms, EKG changes, new regional wall motion abnormality, and/or angiographical evidence. PLEASE NOTE: REFERENCE RANGES EDITED 18 Performed By: #### L500.2500, L501.4010 #### [facility] Laboratory [address] [facility] [place], [place], [address] CHEST 1 VIEW Observed: 11/18/2018 Status: F Source: [place] (PORTABLE) 2:13 PM [facility] REPOSITORY [facility] Imaging Services [address] [place] [address] Chest 1 View (Portable) MR#: [id number] Acct: [id number] Name: SALVATORE LEONG Rep #: [id number] : 1965 M 53 From: Gerardo John MD PCP: Care Physician, No Primary Status: PRE ER Study: Chest 1 View (Portable) Date of Exam: 11/18/18 Exam# [id number] Ordering Dr: Provider,Ed P. STUDY: X-RAY CHEST [...] Gerardo John MD at 16:00 EST Tel [phone], Service support , CC: No Primary Care Physician; ED PHYSICIAN PROVIDER Extracorporeal Technician: Signed EMERGENCY DEPARTMENT Observed: 11/03/2018 Status: F Source: [place] SUMMARY 12:19 AM [facility] REPOSITORY [facility] Medical Records Department [address] [place] [address] Emergency Department Summary 11/02/18 1616 MR#: [id number] Acct: [id number] Name: SALVATORE LEONG Rep #: [id number] : 1965 53 From: Korey Canales MD [...] 1. Sinusitis This note was generated with [employer] dictation software. It may contain incorrect words, [...] your Primary Care Provider. Call [facility] ([phone]) or report to the closest Emergency Room. Call 911 if necessary. 11/03/18 0019 <Electronically signed by Korey Canales MD> Date Korey Canales MD Cosigner Signature (If Indicated): Date CC: No Primary Care Physician 12 LEAD ELECTROCARDIOGRAM Observed: 06/29/2018 Status: F Source: HOLLAND 3:08 PM [facility] REPOSITORY [facility] Cardiovascular Services [address] [place] [address] 12 Lead EKG 06/25/18 1022 MR#: [id number] Acct: [id number] Name: SALVATORE LEONG Rep #: [id number] : 1965 52 From: Venancio Mane MD [...] ECG Confirmed by VENANCIO MANE MD ([id number]), editorial manager VICKI YOON (56) on 06/29/2018 3:08:16 PM Referred By: ZEFERINO 06/29/18 1508 Date Venancio Mane MD CC: MD Rayshawn Alejandra; No Primary Care Physician Signed EMERGENCY DEPARTMENT Observed: 06/25/2018 Status: F Source: [place] SUMMARY 3:34 PM [facility] REPOSITORY [facility] Medical Records Department [address] [place] [address] Emergency Department Summary 06/25/18 1036 MR#: [id number] Acct: [id number] Name: SALVATORE LEONG Rep #: [id number] : 1965 52 From: Bridgette Alejandra MD [...] or food, he has no history of AL PE or DVT he does report family [...] outpatient management and will follow up with [facility] for further evaluation of the chest pain in the nodule he does understand the concept of the nodule could represent early cancer Explained the need for additional therapeutic diagnostic management discussed inpatient versus outpatient management discussed the concept of angina AL sudden the patient reports he understood all [...] to go home he is referred to [facility] for all the above Treatment Plan: [] Disposition: [] Home stable Impression: [] Sharp chest pain etiology unclear, nonspecific pulmonary nodule This note was generated with [employer] dictation software. It may contain incorrect words, [...] problems, contact your Primary Care Provider. Call [facility] ([phone]) or report to the closest Emergency Room. Call 911 if necessary. 06/25/18 1534 <Electronically signed by Bridgette Alejandra MD> Date Bridgette Alejandra MD Cosigner Signature (If Indicated): Date CC: No Primary Care Physician DISCHARGE INSTRUCTION Observed: 06/25/2018 Status: F Source: RAI 12:58 PM [facility] REPOSITORY [facility] Medical Records Department [address] [facility] [place] [address] Discharge Instruction 06/25/18 1257 MR#: [id number] Acct: [id number] Name: DANGSALVATORE Rep #: [id number] : 1965 52 From: Bridgette Alejandra MD [...] problems, contact your Primary Care Provider. Call [facility] ([phone]) or report to the closest Emergency Room. Call 911 if necessary. 06/25/18 5773 <Electronically signed by Bridgette Alejandra MD> Date Bridgette Alejandra MD Cosigner Signature (If Indicated): Date CC: No Primary Care Physician CHEST 1 VIEW Observed: 06/25/2018 Status: F Source: [place] (PORTABLE) 10:36 AM [facility] REPOSITORY [facility] Imaging Services [address] [place] [address] Chest 1 View (Portable) MR#: [id number] Acct: [id number] Name: SALVATORE LEONG Rep #: [id number] : 1965 M 52 From: Julio Watkins DO PCP: Care Physician, No Primary Status: REG ER Study: Chest 1 View (Portable) Date of Exam: 06/25/18 Exam# [id number] Ordering Dr: Bridgette Alejandra MD STUDY: X-RAY [...] MD Rayshawn Alejandra; No Primary Care Physician Extracorporeal Technician: Signed CBC W/DIFF, AUTOMATED Collected: 06/25/2018 Status: F Source: ARI 10:24 AM [facility] REPOSITORY TYPE CODE TESTS RESULT OUT OF [...] Lymph 2.46 Performed By: #### L100.0100 #### [facility] Laboratory [address] [place], [address] BASIC METABOLIC Collected: 06/25/2018 Status: F Source: [place] PROFILE ([facility]) 10:24 AM [facility] REPOSITORY TYPE CODE TESTS RESULT OUT OF [...] 7 Performed By: #### L500.2500, L501.4010 #### [facility] Laboratory [address] [place], [address] TROPONIN-I Collected: 06/25/2018 Status: F Source: HO[place]AND 10:24 AM [facility] REPOSITORY TYPE CODE TESTS RESULT OUT OF RANGE REFERENCE UNITS LAB L501.4010 <0.045 ng/mL Normal < 0.015 TROPONIN-I Result Comment: TROPONIN-I EXPECTED VALUES <0.045 Negative 0.045 - 0.590 Consistent with Cardiac Damage > OR = 0.600 Critical Value Not every elevated troponin is indicative of AL. These values should be used with clinical judgement in examining the patient's clinical picture for diagnosis. To establish a diagnosis of AL versus myocardial injury, there must be a demonstrated rise and/or fall in the troponin values, in addition to ischemic symptoms, EKG changes, new regional wall motion abnormality, and/or angiographical evidence. PLEASE NOTE: REFERENCE RANGES EDITED 18 Performed By: #### L500.2500, L501.4010 #### [facility] Laboratory [address] [place], [address] ALLERGIES ALLERGIES DATE TYPE / CODE NAME / CODE REACTION SEVERITY SOURCE 11/18/2018 Drug No Known Unknown [facility] Allergy/4160 Allergies/F00 [facility] 36010(SNOMED 7180791(RXNOR Repository CT) M) ENCOUNTERS ENCOUNTERS ADMIT/DISCHARGE ACCOUNT ADMITTING ENCOUNTER LOCATION SOURCE NUMBER CLASS 12/03/2018 [id number] Ambulatory Ari [place] 3 [facility] ing:CT Repository 11/27/2018 [id number] Ambulatory [place] Ari 7 [facility] ing:MFPLAB Repository 11/23/2018 [id number] Ambulatory Ari [place] 8 [facility] ing:MTRAD Repository 11/18/2018/ [id number] Emergency Ari Ari 9 5 [facility] ing:ED Repository 11/02/2018/ [id number] Emergency [place] Ari 8 1 [facility] ing:ED Repository 06/25/2018/ [id number] Emergency Ari [place] 8 4 [facility] ing:ED Repository PAYERS PAYERS ENCOUNTER GUARANTOR PAYER SUBSCRIBER SOURCE 12/03/2018 SALVATORE Fernandez Primary SALVATORE Fernandez Ari [id number] GASHE Insurance:ANTHEMPolic ALLEMANDOB: Community [address], y Number: [id number] [address]Ofr: [id number] Repository Date:[id number] () [id number] [place] [address]BJ: 12/03/2018 Secondary NOT GIVENUNK [place] Insurance:SELF PAY [facility] Number: Effective Repository Date:2018-11-25 11/27/2018 SALVATORE Fernandez Primary SALVATORE Fernandez Ari [id number] GASHE Insurance:ANTHEMPolic ALLEMANDOB: Community [address], y Number: [id number] [address]Ink: [id number] Repository Date:2395-49-07[address] () [address], [place] [address]AS: 11/27/2018 Secondary NOT GIVENUNK Ari Insurance:SELF PAY [facility] Number: Effective Repository Date:2018-11-27 11/23/2018 SALVATORE Fernandez Primary SALVATORE Fernandez Ari [id number] GASHE Insurance:ANTHEMPolic ALLEMANDOB: Community [address], y Number: [id number] [facility] [address]Hfn: [id number] Repository Date:5065-69-36[address] () [place], [place] [address]WZ: 11/23/2018 Secondary NOT GIVENUNK Ari Insurance:SELF PAY [facility] Number: Effective Repository Date:2018-11-23 11/18/2018 SALVATORE Fernandez Primary NOT GIVENUNK Ari [id number] [place]AS[place] Insurance:SELF PAY [place] [address] [place] [address]Pgu: Number: Effective Repository Date:2018-11-18 () 11/02/2018 SALVATORE Fernandez Primary SALVATORE Chapman [id number] GAS Insurance:CARESOURCEP ALLEMANDOB: [facility] cosmo SUBRAMANIAN Number: [id number] [address]Zdy: [id number] Repository Date:2018-11-02P [address] () [address]ATTN: [place] [address]HE: 11/02/2018 Secondary NOT GIVENUNK [place] Insurance:SELF PAY [facility] Number: Effective Repository Date:2018-11-02 06/25/2018 Salvatore Fernandez Primary NOT GIVENUNK [place] [id number] 1/ N Insurance:SELF PAY [facility] [address]Kud: Number: Effective Repository Date:2018-06-25 ()
== END ==
PROVIDERS: Family Provider Family Medicine; PCP Family Medicine; Referring Provider Family Medicine; Visit Provider Family Medicine
DX: R91.1 Solitary pulmonary nodule (principal)
CPT/HCPCS: 71260; Q9967

== ENCOUNTER → 2018-12-25 06:52 | Outpatient (CLI) | payer BC, SELFPAY ==
[2018-12-16 12:58] VITALS: BMI 20.9
--- NOTE | 2018-12-26 07:31 | PFTCOMP_ITS ---
COMPLETE PULMONARY FUNCTION TEST INTERPRETATION Brief HPI: Patient is a 53 year old male, currently under the care of myself, who presents to [facility] for complete pulmonary function tests secondary to diagnosis of dyspnea. Respiratory therapist reports good effort and reproducible results. Interpretation: Forced expiration spirometry shows a moderate large airways obstructive ventilatory defect with an FEV1 of 67% predicted. There is no significant bronchodilator response by strict ATS criteria. Spirograms are of good quality and plateau slowly, indicating slowly emptying areas of the lungs. The respiratory flow volume loop shows decreased expiratory flow rates at all lung volumes consistent with airway obstruction. Lung volumes by body plethysmography show a normal total lung capacity at 7.67 L, 106% predicted. FRC and RV are elevated out of proportion. Lung volume measurements are consistent with air-trapping. Diffusion capacity by carbon monoxide is normal at 83% predicted. The airway resistance is normal. No previous pulmonary function tests were available for review. Impression: Irreversible moderate large airways obstructive ventilatory defect resulting in air trapping with preserved diffusion capacity, in a pattern consistent with chronic bronchitis.
== END ==
LOC: PSN 06:53
PROVIDERS: Family Provider Family Medicine; PCP Family Medicine; Referring Provider Internal Medicine Critical Care Medicine; Visit Provider Internal Medicine Critical Care Medicine
DX: R06.00 Dyspnea, unspecified (principal)
CPT/HCPCS: 94060; 94726; 94729

== ENCOUNTER → 2019-01-01 08:52 | Outpatient (CLI) | payer BC, SELFPAY ==
[2018-12-16 12:58] VITALS: BMI 20.9
[2019-01-01 09:00] VITALS: PULSE 85; PULSE 87; PULSE 91; PULSE 92; PULSE 95; PULSE 98; O2SAT 91; O2SAT 92; O2SAT 93; O2SAT 95
--- NOTE | 2019-01-04 07:20 | PCM.PSN.6M ---
PSN 6 Minute Walk Test - 6 Minute Walk Test 6 Minute Walk Test: 6 Minute Walk Test PSN:6-Minute Walk Test Start: 01/01/19 09:54 Freq: Status: Active Protocol: [id number].6MINW Document 01/01/19 09:00 EW (Rec: 01/01/19 10:11 EW [id number]) 6 Minute Walk Test Date Performed 01/01/19 Time Performed 09:00 Height 6 ft Weight: 152 lb Weight in Pounds 152.[address]: Jorge Jauregui Assistive device used: None Pre-test Oxygen Delivery Method Room Air Pulse Ox (%) 95 Pulse Rate (60-100 beats/min) 92 Dyspnea Lara Scale (0-10) 0.5 Exertion Lara Scale (6-20) 6 1st minute Oxygen Delivery Method Room Air Pulse Ox (%) 93 Pulse Rate (60-100 beats/min) 95 2nd minute Oxygen Delivery Method Room Air Pulse Ox (%) 91 Pulse Rate (60-100 beats/min) 98 3rd minute Oxygen Delivery Method Room Air Pulse Ox (%) 93 Pulse Rate (60-100 beats/min) 98 4th minute Oxygen Delivery Method Room Air Pulse Ox (%) 93 Pulse Rate (60-100 beats/min) 87 5th minute Oxygen Delivery Method Room Air Pulse Ox (%) 92 Pulse Rate (60-100 beats/min) 91 6th minute Oxygen Delivery Method Room Air Pulse Ox (%) 95 Pulse Rate (60-100 beats/min) 95 Post-test Oxygen Delivery Method Room Air Pulse Ox (%) 95 Pulse Rate (60-100 beats/min) 85 Dyspnea Lara Scale (0-10) 0.5 Exertion Lara Scale (6-20) 8 Full Laps Walked 21 Partial Lap, Number of Tiles Walked 26 Total Distance Walked (ft) 1265 - Interpretation Interpretation: The patient ambulated 1265 feet over the course of 6 minutes beginning on room air without assistive devices or breaks. Pretesting oxygen saturation was noted to be 95% on room air. With ambulation, the bk oxygen saturation was 91%. This represents a significant exertional oxygen desaturation. - Recommendations Recommendations: There is no indication for the use of supplemental oxygen at this time. However, close interval follow-up is recommended, given the degree of oxygen desaturation noted during this study.
== END ==
LOC: PSN 08:53
PROVIDERS: Family Provider Family Medicine; PCP Family Medicine; Referring Provider Internal Medicine Critical Care Medicine; Visit Provider Internal Medicine Critical Care Medicine
DX: R06.00 Dyspnea, unspecified (principal)
CPT/HCPCS: 94618

== ENCOUNTER 2019-07-28 09:17 | Emergency (ER) | payer BC, SELFPAY ==
[2018-12-16 12:58] VITALS: BMI 20.9
[2019-07-28 09:18] VITALS: BP 125/90; PULSE 91; RESP 16; TEMP 36.6; O2SAT 97; BMI 21.9
--- NOTE | 2019-07-28 09:47 | ED.DCSUM_ITS ---
History of Present Illness Chief Complaint: Lower Extremity Injury Informant: Patient Onset: Yesterday Narrative: Patient dropped a brick on his right great toe. This happened yesterday it is deformed he walked to the emergency department with pain. His pain is mild to moderate he has no other injury. Past Medical History - Allergies and Home Meds Allergies/Adverse Reactions: Allergies No Known Allergies Allergy (Verified 07/28/19 09:17) Primary Care Physician: Yuval Rodriguez MD [Primary Care Provider] - Past Medical History: - - Noncontributory Smoking Status: Current every day smoker Review of Systems Musculoskeletal: Reports: - - Right fifth toe pain as in HPI Skin: Reports: - - No laceration Neurological: Denies: Weakness Hematologic: Denies: Easy bruising, Easy bleeding Physical Exam Vital Signs/Narrative: Vital Signs Temp Pulse Resp BP Pulse Ox 07/28/19 09:18 97.8 F 91 16 125/90 H 97 General: Well nourished ENT: Moist mucous membranes Extremities: - - Knee and ankle exam are normal. There is tenderness and lateral deformity of the fifth digit. Otherwise no other foot pain. Skin: Normal color, No rash Neurological: Normal Strength, Normal Sensation Diagnostic/Tx/Re-eval - Medical Decision Making There is a comminuted displaced proximal phalanx fracture of the fifth toe it is laterally displaced. I will place the patient in a katey tape postop shoe and discharged to follow-up with orthopedics. Discharge stable condition ED Disposition - Plan for ED Patient: Disposition: Home or Assisted Living Diagnosis: Toe fracture, right Instructions: FRACTURE, Toe [Closed] Prescriptions: Hydrocodone Bitart/Apap 5-325 [[place] 5MG-325MG] 1 tab PO Q4H PRN PRN 2 Days #10 tab PRN Reason: Pain Prescription Printed Referrals: Cara Arrieta DO [STAFF PHYSICIAN] - 3-5 Days
--- NOTE | 2019-07-28 10:25 | RAD_ITS ---
STUDY: X-RAY RIGHT FOOT, FIFTH TOE REASON FOR EXAM: Male, 53 years old. Pain following injury. TECHNIQUE: 3 view(s) of the toe were obtained. COMPARISON: None. FINDINGS: Normal visualized metatarsus. Normal metatarsophalangeal (M.T.P) joint. Normal interphalangeal joints. Oblique fracture through the distal portion of the proximal pharynx of the fifth toe. There is diffuse soft tissue swelling of the toe. RAD/Toe(s) Min 2 Views IMPRESSION: Oblique fracture involving the distal aspect of the proximal pharynx of the fifth toe with overlying soft tissue swelling. Electronically Signed: Gerardo John, at 11:01 EDT , Service support ,
[2019-07-28 11:12] VITALS: BP 156/104; PULSE 69; RESP 17
== END 2019-07-28 11:14 | disposition home or self-care (01) ==
PROVIDERS: Emergency Provider Emergency Medicine; Family Provider Family Medicine; PCP Family Medicine
DX: S92.411A Displaced fracture of proximal phalanx of right great toe, initial encounter for closed fracture (principal); W20.8XXA Other cause of strike by thrown, projected or falling object, initial encounter; Y93.9 Activity, unspecified; Y92.89 Other specified places as the place of occurrence of the external cause; Y99.9 Unspecified external cause status; F17.200 Nicotine dependence, unspecified, uncomplicated
CPT/HCPCS: 73660; 99283

== ENCOUNTER 2020-04-03 08:39 | Emergency (ER) | payer BC, SELFPAY ==
[2020-04-03 08:40] VITALS: BP 160/118; PULSE 89; RESP 18; TEMP 36.3; O2SAT 99; BMI 21.9
[2020-04-03 08:55] VITALS: BP 160/118; PULSE 89; RESP 18; TEMP 36.3; O2SAT 99
--- NOTE | 2020-04-03 08:58 | EKG12_ITS ---
Test Reason : SOB Blood Pressure : / mmHG Vent. Rate : 076 BPM Atrial Rate : 076 BPM P-R Int : 130 ms QRS Dur : 094 ms QT Int : 392 ms P-R-T Axes : 063 015 032 degrees QTc Int : 441 ms Normal sinus rhythm with sinus arrhythmia Normal ECG Confirmed by MICHEAL SAUNDERS, SALLY ([id number]), editor book VICKI YOON (56) on 04/04/2020 3:41:01 PM Referred By: MARKUS Confirmed By:SALLY BURTON MD
--- NOTE | 2020-04-03 09:00 | RAD_ITS ---
STUDY: X-RAY CHEST REASON FOR EXAM: Male, 54 years old. chest pain, SOB TECHNIQUE: Single AP portable view of the chest. COMPARISON: None. FINDINGS: The lungs are clear and expanded. There is no demonstrated pleural abnormality. Normal size heart. Normal mediastinum and marlena. Normal visualized pulmonary arteries. Normal visualized aortic arch and descending thoracic aorta. There is a dextroscoliosis of the thoracic spine. There is degenerative osteoarthritis of the bilateral shoulders. There is no demonstrated abnormality of the visualized soft tissue structures of the upper abdomen. RAD/Chest 1 View (Portable) IMPRESSION: Degenerative changes, as described above. No demonstrated acute cardiopulmonary process. Electronically Signed: Dion Manning, at 9:43 EDT Tel , Service support ,
--- NOTE | 2020-04-03 09:01 | ED.VIS.GEN ---
History of Present Illness Chief Complaint: Shortness of Breath Informant: Patient Narrative: Patient presents the emergency department stating that his lungs feel heavy. He denies any cough or fever. He is a longtime smoker with clinical suspicion of COPD. Patient states that on Friday when he woke up he felt some discomfort in his anterior mid to lower ribs. Is worse with movement and deep breath. He also feels it in the back. Friday it was worse but did seem to get a little bit better as the day went on and when he tried to go to work today he states he could not perform his duties and came here. Past Medical History - Allergies and Home Meds Allergies/Adverse Reactions: Allergies No Known Allergies Allergy (Verified 04/03/20 08:40) Primary Care Physician: Yuval Rodriguez MD [Primary Care Provider] - Smoking Status: Current every day smoker Review of Systems General: Denies: Chills, Fever, Sweats Eyes: Denies: Visual changes - bilaterally, Diplopia ENT: Denies: Rhinorrhea, Sore throat Cardiovascular: Reports: Chest pain. Denies: Palpitations Respiratory: Reports: Dyspnea. Denies: Cough, Dyspnea on exertion Gastrointestinal: Denies: Abdominal pain, Nausea, Vomiting, Diarrhea, Melena, Hematochezia Genitourinary: Denies: Dysuria, Hematuria, Frequency Musculoskeletal: Reports: Back pain. Denies: Extremity Pain Skin: Denies: Rash, Wounds Neurological: Denies: Headache, Weakness, Numbness Physical Exam Vital Signs/Narrative: Vital Signs Temp Pulse Resp BP Pulse Ox 04/03/20 08:55 97.4 F L 89 18 160/118 H 99 04/03/20 08:40 97.4 F L 89 18 160/118 H 99 Inital Vital Signs reviewed: Yes General: Well nourished, Well developed, No Acute Distress Head: Normocephalic, Atraumatic Eyes: Perrl, EOMI ENT: Moist mucous membranes, No rhinorrhea Neck: Supple, Nontender Cardiovascular: Regular rate, Regular rhythm, No murmurs Respiratory: No distress, CTA bilaterally, Chest tenderness Abdomen: Soft, Nontender, Nondistended, Normal bowel sounds Back: - - The associated ribs both anteriorly and posteriorly are tender to palpation. These are the mid to lower ribs. When I asked him to sit up straight he states it feels worse in the front. He prefers to be slightly kyphotic. Extremities: Nontender, No edema Skin: Normal color, No rash Neurological: Alert, Oriented x3, Cranial nerves II-XII grossly intact, Normal Strength, Normal Sensation Psychological: Normal affect, Normal Mood Diagnostic/Tx/Re-eval Laboratory Last Values WBC 8.8 K/mm3 (4.4-11.0) 04/03/20 09:10 RBC 4.83 M/mm3 (4.6-6.2) 04/03/20 09:10 Hgb 16.4 g/dL (13.0-16.5) 04/03/20 09:10 Hct 45.8 % (40-54) 04/03/20 09:10 MCV 94.8 fL (80-94) H 04/03/20 09:10 MCH 34.0 pg (27.0-32.0) H 04/03/20 09:10 MCHC 35.8 g/dL (32-36) 04/03/20 09:10 RDW Std Deviation 45.8 fl (35.1-43.9) H 04/03/20 09:10 RDW Coeff of Laura 13.2 % (11.6-14.6) 04/03/20 09:10 Plt Count 177 K/mm3 (150-450) 04/03/20 09:10 MPV 9.4 fl (6.2-12.0) 04/03/20 09:10 Immature Gran % (Auto) 0.300 % (0.0-0.9) 04/03/20 09:10 Neut % (Auto) 73.2 % (47-70) H 04/03/20 09:10 Lymph % (Auto) 16.3 % (19-41) L 04/03/20 09:10 [place] % (Auto) 9.5 % (0-10) 04/03/20 09:10 Eos % (Auto) 0.1 % (0-5) 04/03/20 09:10 Baso % (Auto) 0.6 % (0-1) 04/03/20 09:10 Absolute Neuts (auto) 6.4 X10^3/uL (2.0-7.7) 04/03/20 09:10 Absolute Lymphs (auto) 1.43 X10^3/uL (0.83-4.51) 04/03/20 09:10 Nucleated RBC % 0 % (0-5) 04/03/20 09:10 Sodium 137 mmol/L (136-145) 04/03/20 09:10 Potassium 4.4 mmol/L (3.5-5.1) 04/03/20 09:10 Chloride 102 mmol/L (98-107) 04/03/20 09:10 Carbon Dioxide 31.0 mmol/L (21.0-32.0) 04/03/20 09:10 Anion Gap 4 (5-15) L 04/03/20 09:10 BUN 13 mg/dL (7-18) 04/03/20 09:10 Creatinine 0.89 mg/dL (0.70-1.30) 04/03/20 09:10 Estim Creat Clear Calc 96.32 ml/min 04/03/20 09:10 Est GFR (MDRD) Af Amer 113 mL/min (>60) 04/03/20 09:10 Est GFR (MDRD) Non-Af 93 mL/min (>60) 04/03/20 09:10 BUN/Creatinine Ratio 14.6 RATIO (10-20) 04/03/20 09:10 Glucose 131 mg/dL (74-106) H 04/03/20 09:10 Calcium 9.7 mg/dL (8.5-10.1) 04/03/20 09:10 Troponin I 0.026 ng/mL (<0.045) 04/03/20 09:10 Clinical Impression(s) from Imaging Studies Chest X-Ray 04/03/20 09:00 IMPRESSION: Degenerative changes, as described above. No demonstrated acute cardiopulmonary process. Electronically Signed: Dion Manning, at 9:43 EDT Tel , Service support , - EKG Initial EKG Interpretation: Sinus Rhythm - EKG is a sinus rhythm with a sinus arrhythmia with a rate of 76 without ectopy. - Medical Decision Making Patient has reproducible pain with movement and palpation. I think this is mostly musculoskeletal. I do not believe its PE dissection pneumonia COVID ACS. Will treat with Flexeril and anti-inflammatories. Instructions for stretching. Also would recommend chiropractor if he has the ability to get 1. Follow-up primary care if not improving ED Disposition - Plan for ED Patient: Disposition: Home or Assisted Living Diagnosis: Chest pain, Dyspnea, Chest wall pain Prescriptions: cycloBENZAPRine HCl [Flexeril] 10 mg PO TID PRN #15 tab PRN Reason: Muscle Spasm Transmission Status: Pending to [email or web address] Ibuprofen [Motrin] 800 mg PO TID PRN PRN #20 tab PRN Reason: Pain Or Fever Transmission Status: Pending to [facility] Referrals: Yuval Rodriguez MD [Primary Care Provider] - 1 Week if not improving
[2020-04-03] MEDS: Ketorolac 30 MG/ML Syringe IV (09:13)
[2020-04-03 09:21] LABS: Absolute Lymphocyte Count 1.43 X10^3/uL (0.83-4.51); Absolute Neutrophil Count 6.4 X10^3/uL (2.0-7.7); Basophil# 0.05 X10^3/uL; Basophil% 0.6 % (0-1); Eosinophil# 0.01 X10^3/uL; Eosinophils% 0.1 % (0-5); Hematocrit 45.8 % (40-54); Hemoglobin 16.4 g/dL (13.0-16.5); Lymphocyte # 1.43 X10^3/ul (4.0); Lymphocyte % 16.3 % (19-41); Mean Corp Hgb Conc 35.8 g/dL (32-36); Mean Corpuscular Volume 94.8 fL (80-94); Mean Platelet Vol. 9.4 fl (6.2-12.0); Monocyte# 0.83 X10^3/uL; Monocyte% 9.5 % (0-10); NRBC Flagged by Analyzer 0 % (0-5); Neutrophil # 6.41 X10^3/uL (2.7-7.7); Neutrophil % 73.2 % (47-70); Platelet Count 177 K/mm3 (150-450); RBC Distribution Width CV 13.2 % (11.6-14.6); RBC Distribution Width SD 45.8 fl (35.1-43.9); Red Blood Count 4.83 M/mm3 (4.6-6.2); White Blood Count 8.8 K/mm3 (4.4-11.0)
[2020-04-03 09:35] LABS: Anion Gap 4 (5-15); BUN 13 mg/dL (7-18); BUN/Creat Ratio 14.6 RATIO (10-20); Calcium,Total 9.7 mg/dL (8.5-10.1); Chloride 102 mmol/L (98-107); Creatinine, Serum 0.89 mg/dL (0.70-1.30); EST Glomerular Filtration Rate 93 mL/min (>60); Est Glom Filt Rate - Afr Amer 113 mL/min (>60); Estimated Creatinine Clearance 96.32 ml/min; Glucose 131 mg/dL (74-106); Potassium 4.4 mmol/L (3.5-5.1); Sodium Level 137 mmol/L (136-145)
[2020-04-03 09:51] VITALS: BP 165/111; PULSE 71; RESP 19; TEMP 37.1; O2SAT 98
[2020-04-03 10:00] VITALS: BP 145/100; PULSE 69; RESP 18; TEMP 36.7; O2SAT 99
[2020-04-03 10:36] VITALS: BP 145/100; PULSE 70; RESP 15; O2SAT 98
== END 2020-04-03 10:37 | disposition home or self-care (01) ==
PROVIDERS: Emergency Provider Emergency Medicine; PCP Family Medicine
DX: R07.89 Other chest pain (principal); R06.00 Dyspnea, unspecified; F17.200 Nicotine dependence, unspecified, uncomplicated
CPT/HCPCS: 71045; 80048; 84484; 85025; 93005; 96374; 99285; A4216

== ENCOUNTER 2020-08-21 10:11 | Emergency (ER) | payer BC, SELFPAY ==
[2020-08-21 10:12] VITALS: BP 155/104; PULSE 92; RESP 17; TEMP 37.1; O2SAT 98
[2020-08-21 10:13] VITALS: BP 171/104; PULSE 97; RESP 18; TEMP 37.1; O2SAT 98; BMI 20.6
--- NOTE | 2020-08-21 10:19 | EKG12_ITS ---
Test Reason : CP Blood Pressure : / mmHG Vent. Rate : 086 BPM Atrial Rate : 086 BPM P-R Int : 116 ms QRS Dur : 084 ms QT Int : 354 ms P-R-T Axes : 068 041 052 degrees QTc Int : 423 ms Sinus rhythm with marked sinus arrhythmia Otherwise normal ECG Confirmed by MICHEAL SAUNDERS, SALLY ([id number]), editor publications JOSELITO DOBBINS ([id number]) on 08/23/2020 10:11:43 AM Referred By: Confirmed By:SALLY BURTON MD
--- NOTE | 2020-08-21 10:20 | ED.VIS.GEN ---
History of Present Illness Chief Complaint: Chest Pain Informant: Patient Onset: Today Current Severity: Mild Maximum Severity: Moderate Narrative: Patient present secondary to chest pain that started approximately 1 hour ago. He states it was sharp, stabbing, and heavy all the same time. He states it was rather intense at onset and is now improving. He did feel short of breath but that is also improving. He denies known history of cardiac disease but does have a significant family history. He believes his last stress test was a year ago and normal at that time. Past Medical History - Allergies and Home Meds Allergies/Adverse Reactions: Allergies No Known Allergies Allergy (Verified 08/21/20 10:12) Primary Care Physician: Yuval Rodriguez MD [Primary Care Provider] - Prior records reviewed: Yes Smoking Status: Current every day smoker Review of Systems General: Denies: Chills, Fever Eyes: Denies: Visual changes - bilaterally ENT: Denies: Bilateral ear pain Cardiovascular: Reports: Chest pain Respiratory: Reports: Dyspnea. Denies: Cough Gastrointestinal: Denies: Abdominal pain, Vomiting, Diarrhea Musculoskeletal: Denies: Swelling, Extremity Pain Neurological: Denies: Headache Hematologic: Denies: Easy bruising, Easy bleeding Allergy: Denies: Uticaria Physical Exam Vital Signs/Narrative: Vital Signs Temp Pulse Resp BP Pulse Ox 08/21/20 10:13 98.7 F 97 18 171/104 H 98 08/21/20 10:12 98.7 F 92 17 155/104 H 98 Inital Vital Signs reviewed: Yes General: Well nourished, Well developed Head: Normocephalic ENT: Moist mucous membranes Neck: Supple Cardiovascular: Regular rate, Regular rhythm Respiratory: No distress, CTA bilaterally Abdomen: Soft, Nontender, Normal bowel sounds Extremities: Nontender, No edema Skin: Normal color Neurological: Alert, Oriented x3 Psychological: Normal affect Diagnostic/Tx/Re-eval Impressions Chest X-Ray 08/21/20 10:54 IMPRESSION: No acute abnormality of the chest. Electronically Signed: Dion Manning, at 12:00 EDT Tel , Service support , Chest CTA 08/21/20 11:02 IMPRESSION: Aneurysmal dilatation of ascending aorta measuring 4 cm in diameter. There is no demonstrated pulmonary embolism or arterial dissection. Electronically Signed: Dion Manning, at 12:03 EDT Tel , Service support , 08/21/20 10:54 Chest 1 View (Portable) [RAD] Stat 08/21/20 11:02 CTA Chest W/WO Contrast [CT] Stat Laboratory Results 08/21/20 08/21/20 08/21/20 10:24 10:24 10:24 WBC 8.3 RBC 4.68 Hgb 15.7 Hct 45.1 MCV 96.4 H MCH 33.5 H MCHC 34.8 RDW Std Deviation 45.0 H RDW Coeff of Laura 12.6 Plt Count 228 MPV 9.5 Immature Gran % (Auto) 0.200 Neut % (Auto) 69.8 Lymph % (Auto) 21.0 [place] % (Auto) 8.0 Eos % (Auto) 0.4 Baso % (Auto) 0.6 Absolute Neuts (auto) 5.8 Absolute Lymphs (auto) 1.74 Nucleated RBC % 0 D-Dimer Quant (PE/DVT) 0.75 H* Sodium 137 Potassium 4.1 Chloride 106 Carbon Dioxide 26.0 Anion Gap 5 BUN 11 Creatinine 0.82 Estim Creat Clear Calc 98.17 Est GFR (MDRD) Af Amer 125 Est GFR (MDRD) Non-Af 103 BUN/Creatinine Ratio 13.4 Glucose 78 Calcium 8.9 Troponin I < 0.015 - EKG Initial EKG Interpretation: Sinus Rhythm - Sinus 86 with sinus arrhythmia. No acute ST change. - Medical Decision Making Patient was given aspirin on arrival. On repeat evaluation he is resting comfortably. Test results are discussed with him. I did recommend hospitalization to ensure this is not cardiac in nature. Patient states that he needs to go home and get a few things done but will come back for admission. I did advise him that he would have to sign out AGAINST MEDICAL ADVICE and then come back into the ER. I did speak with the hospitalist to ensure that they would be willing to see him knowing that he has a 4 cm aneurysm. Hospitalist agreed that nothing is done with an aneurysm at this dimension and patient could be admitted here for cardiac rule out. Patient is encouraged to return as soon as possible. ED Disposition - Plan for ED Patient: Disposition: Home or Assisted Living Diagnosis: Chest pain Instructions: Angina Referrals: Yuval Rodriguez MD [Primary Care Provider] -
[2020-08-21 10:26] VITALS: O2SAT 96
[2020-08-21 10:29] LABS: Absolute Lymphocyte Count 1.74 X10^3/uL (0.83-4.51); Absolute Neutrophil Count 5.8 X10^3/uL (2.0-7.7); Basophil# 0.05 X10^3/uL; Basophil% 0.6 % (0-1); Eosinophil# 0.03 X10^3/uL; Eosinophils% 0.4 % (0-5); Hematocrit 45.1 % (40-54); Hemoglobin 15.7 g/dL (13.0-16.5); Lymphocyte # 1.74 X10^3/ul (4.0); Mean Corp Hgb Conc 34.8 g/dL (32-36); Mean Corpuscular Hgb 33.5 pg (27.0-32.0); Mean Corpuscular Volume 96.4 fL (80-94); Mean Platelet Vol. 9.5 fl (6.2-12.0); Monocyte# 0.66 X10^3/uL; NRBC Flagged by Analyzer 0 % (0-5); Neutrophil % 69.8 % (47-70); Platelet Count 228 K/mm3 (150-450); RBC Distribution Width CV 12.6 % (11.6-14.6); Red Blood Count 4.68 M/mm3 (4.6-6.2); White Blood Count 8.3 K/mm3 (4.4-11.0)
[2020-08-21] MEDS: Aspirin 81 MG TAB.CHEW 324 MG PO (10:29)
[2020-08-21 10:44] LABS: D-Dimer Quantitative (DVT/PE) 0.75 FEU/ug/m (0.27-0.49)
[2020-08-21 10:48] LABS: Anion Gap 5 (5-15); BUN 11 mg/dL (7-18); BUN/Creat Ratio 13.4 RATIO (10-20); Calcium,Total 8.9 mg/dL (8.5-10.1); Chloride 106 mmol/L (98-107); Creatinine, Serum 0.82 mg/dL (0.70-1.30); EST Glomerular Filtration Rate 103 mL/min (>60); Est Glom Filt Rate - Afr Amer 125 mL/min (>60); Estimated Creatinine Clearance 98.17 ml/min; Glucose 78 mg/dL (74-106); Potassium 4.1 mmol/L (3.5-5.1); Sodium Level 137 mmol/L (136-145)
--- NOTE | 2020-08-21 10:54 | RAD_ITS ---
STUDY: X-RAY CHEST REASON FOR EXAM: Male, 54 years old. LEFT SIDED CP, SOB TECHNIQUE: Single PA view of the chest. COMPARISON: None. FINDINGS: The lungs are clear and expanded. There is no demonstrated pleural abnormality. Normal size heart. Normal mediastinum and marlena. Normal visualized pulmonary arteries. Normal visualized aortic arch and descending thoracic aorta. There is a mild dextroscoliosis of the thoracic spine. There is deformity of the posterior aspect of the left ninth rib suggesting an old healed fracture. There is no demonstrated abnormality of the visualized soft tissue structures of the upper abdomen. RAD/Chest 1 View (Portable) IMPRESSION: No acute abnormality of the chest. Electronically Signed: Dion Manning, at 12:00 EDT Tel , Service support ,
--- NOTE | 2020-08-21 11:02 | CT_ITS ---
STUDY: CTA CHEST REASON FOR EXAM: Male, 54 years old. SHARP,STABBING PAIN AND HEAVINESS IN CHEST/SOB/ELEV DDIMER RADIATION DOSAGE (If Supplied By Facility): CTDIvol = ( 6.22 ) mGy, DLP = ( 266.56 ) mGycm TECHNIQUE: The examination was performed with the intravenous administration of IV 75 ML ISOVUE 300. Post-processing of the angiographic images was performed, with multiplanar reformation and 3D reconstruction. Individualized dose optimization techniques were used for this CT. COMPARISON: None. FINDINGS: Normal enhancement of the main pulmonary artery and right and left pulmonary arteries. Normal enhancement of the bilateral peripheral pulmonary arteries. There is no demonstrated pulmonary embolism. Normal thoracic aorta and visualized great vessels. There is no demonstrated aortic dissection. Normal heart and pericardium. Normal mediastinum. Normal hilar regions. Normal visualized trachea and bronchi. The lungs are hyper expanded, with flattening of the hemidiaphragms. Normal pulmonary parenchyma. Normal pleura. Normal chest wall structures. There are degenerative changes of thoracic spine. Normal visualized upper abdomen. CT/CTA Chest W/WO Contrast IMPRESSION: Aneurysmal dilatation of ascending aorta measuring 4 cm in diameter. There is no demonstrated pulmonary embolism or arterial dissection. Electronically Signed: Dion Manning, at 12:03 EDT Tel , Service support ,
[2020-08-21] MEDS: 0.9% Normal Saline 1,000 ML 150 ML IV (11:20)
[2020-08-21 13:02] VITALS: BP 157/91; PULSE 77; RESP 16
[2020-08-21 13:04] VITALS: BP 169/99
== END 2020-08-21 13:04 | disposition left against medical advice (07) ==
PROVIDERS: Emergency Provider Emergency Medicine; PCP Family Medicine
DX: R07.9 Chest pain, unspecified (principal); I71.2 Thoracic aortic aneurysm, without rupture; F17.200 Nicotine dependence, unspecified, uncomplicated; Z82.49 Family history of ischemic heart disease and other diseases of the circulatory system
CPT/HCPCS: 71045; 71275; 80048; 84484; 85025; 85379; 93005; 96360; 96361; 99285; J7030; Q9967; A4216

== ENCOUNTER 2020-08-30 08:55 | Emergency (ER) | payer BC, SELFPAY ==
[2020-08-30 08:55] VITALS: BP 137/87; PULSE 87; RESP 18; TEMP 36.6; O2SAT 97; BMI 20.6
--- NOTE | 2020-08-30 09:13 | EKG12_ITS ---
Test Reason : CP Blood Pressure : / mmHG Vent. Rate : 077 BPM Atrial Rate : 077 BPM P-R Int : 116 ms QRS Dur : 086 ms QT Int : 368 ms P-R-T Axes : 064 034 048 degrees QTc Int : 416 ms Sinus rhythm with Premature atrial complexes Otherwise normal ECG Confirmed by MARQUEZ SAUNDERS, RANJIT ([id number]), primer expeditor and drier JOSELITO DOBBINS ([id number]) on 09/04/2020 8:21:59 A M Referred By: DARY Confirmed By:PARAMJIT ZAYAS MD
--- NOTE | 2020-08-30 09:13 | RAD_ITS ---
STUDY: X-RAY CHEST REASON FOR EXAM: Male, 54 years old. CHEST PAIN AND TIGHTNESS TECHNIQUE: Single AP portable view of the chest. COMPARISON: Comparison is made with prior examination dated 08/21/2020. FINDINGS: EKG electrodes are seen. Hyperinflation. Scattered calcified granulomas. There is no demonstrated pleural abnormality. Normal size heart. Normal mediastinum and marlena. Normal visualized pulmonary arteries. There is atherosclerotic calcification of the aortic arch with tortuosity. There are mild degenerative changes of the visualized thoracic spine. Stable deformity of the posterior left ninth rib in keeping with healed fracture. There is no demonstrated abnormality of the visualized soft tissue structures of the upper abdomen. RAD/Chest 1 View (Portable) IMPRESSION: Hyperinflation. Scattered calcified granulomas. Electronically Signed: Gerardo John, at 9:51 EDT , Service support ,
--- NOTE | 2020-08-30 09:15 | ED.DCSUM_ITS ---
History of Present Illness Chief Complaint: Chest Pain Informant: Patient, EMS Onset: Weeks - 1-2 Activity at onset: Unknown - sometimes exertional, others occurs at rest randomly Timing: Intermittent, Lasts - 1-3 hrs most episodes Quality: Aching Location: Substernal - and/or just left of sternum Current Severity: Mild Maximum Severity: Severe - this AM Worsened By: Nothing. Not Worsened By: Breathing Relieved By: NTG - by EMS today Associated Symptoms: Dyspnea, Lightheadedness - at times. Negative for: Vomiting, Diaphoresis, Cough, Fever, Palpitations Narrative: Patient presenting for episodic chest discomfort that has been coming and going for over a week, he states he was here about a week ago, it was actually more than that, he left AGAINST MEDICAL ADVICE after a negative work-up except for an incidental 4 cm ascending aortic aneurysm without dissection, he states he has been having the same discomfort intermittently, multiple times a day, since then. There is a particularly severe episode of it this morning, during which both of his arms tingled and he became more concerned. EMS gave him aspirin and nitroglycerin, which seemed to improve the discomfort and now he is feeling much better and his symptoms are only mild and the tingling is gone. He is a heavy smoker, he denies any known contact with anyone with COVID-19, he tested negative for it about a month ago because someone at work had it although he was not around that person. He does not see a primary care doctor with any frequency. He denies any recent immobilization or leg pain or swelling. His symptoms are nonpleuritic when they occur. Recent Illness/Hospitalization: No CVD Risk Factors: Smoking Past Medical History - Allergies and Home Meds Allergies/Adverse Reactions: Allergies No Known Allergies Allergy (Verified 08/30/20 08:57) Primary Care Physician: Yuval Rodriguez MD [Primary Care Provider] - Past Medical History: None Lives: Alone Smoking Status: Current every day smoker Review of Systems General: Reports: Malaise. Denies: Chills, Fever, Sweats Eyes: Denies: Visual changes - bilaterally, Diplopia ENT: Denies: Rhinorrhea, Sore throat Cardiovascular: Reports: Chest pain. Denies: Palpitations Respiratory: Reports: Dyspnea. Denies: Cough, Dyspnea on exertion Gastrointestinal: Denies: Abdominal pain, Nausea, Vomiting, Diarrhea, Melena, Hematochezia Genitourinary: Denies: Dysuria, Hematuria, Frequency Musculoskeletal: Denies: Neck pain, Back pain, Swelling, Extremity Pain Skin: Denies: Rash, Wounds Neurological: Reports: Parasthesia. Denies: Headache, Weakness Physical Exam Vital Signs/Narrative: Vital Signs Temp Pulse Resp BP Pulse Ox 08/30/20 08:55 98 F 87 18 137/87 H 97 Inital Vital Signs reviewed: Yes General: Well nourished, Well developed, Unkempt, No Acute Distress Head: Normocephalic, Atraumatic Eyes: Perrl, EOMI ENT: Moist mucous membranes, No rhinorrhea Neck: Supple, Nontender, No JVD Cardiovascular: Regular rate, Regular rhythm, No murmurs, - - Equal bilateral 2+/4 radial pulses Respiratory: No distress, CTA bilaterally, Chest nontender Abdomen: Soft, Nontender, Nondistended, Normal bowel sounds Back: Nontender, Normal Inspection Extremities: Nontender, No edema. Negative for: Calf Tenderness Skin: Normal color, No rash, No Trauma Neurological: Alert, Oriented x3, Cranial nerves II-XII grossly intact, Normal Strength, Normal Sensation Psychological: Normal affect, Normal Mood Diagnostic/Tx/Re-eval Impressions Chest X-Ray 08/30/20 09:13 IMPRESSION: Hyperinflation. Scattered calcified granulomas. Electronically Signed: Gerardo John, at 9:51 EDT , Service support , 08/30/20 09:13 Chest 1 View (Portable) [RAD] Stat Laboratory Results 08/30/20 08/30/20 09:02 09:02 WBC 6.8 RBC 4.69 Hgb 15.6 Hct 45.9 MCV 97.9 H MCH 33.3 H MCHC 34.0 RDW Std Deviation 45.5 H RDW Coeff of Laura 12.8 Plt Count 208 MPV 9.6 Immature Gran % (Auto) 0.400 Neut % (Auto) 60.0 Lymph % (Auto) 26.8 [place] % (Auto) 11.2 H Eos % (Auto) 1.2 Baso % (Auto) 0.4 Absolute Neuts (auto) 4.1 Absolute Lymphs (auto) 1.82 Nucleated RBC % 0 Sodium 135 L Potassium 4.3 Chloride 101 Carbon Dioxide 30.0 Anion Gap 4 L BUN 9 Creatinine 0.82 Estim Creat Clear Calc 98.17 Est GFR (MDRD) Af Amer 124 Est GFR (MDRD) Non-Af 102 BUN/Creatinine Ratio 10.9 Glucose 76 Calcium 8.7 Troponin I < 0.015 - Rhythm Strip Rhythm Strip: Sinus Rhythm Rate: 77 Ectopy: PAC(s) - EKG Initial EKG Interpretation: Sinus Rhythm, No Acute Injury Pattern, - - normal EKG except for PAC Prior: Unchanged Treatment: Aspirin - given SUPERVISOR CORRESPONDENCE SECTION by EMS, NTG Topical - Medical Decision Making With placing nitroglycerin paste on his chest, his chest pain completely resolved. My concern is that the patient could be having repetitive episodes of unstable angina. His work-up right now is negative, however the patient's follow-up is nonexistent, and he is noncompliant. I advised him that he should be admitted to the hospital. He states he refuses and wants to go home and take a shower and get a change close and then he will return. As I discussed with him, he did this 1.5 weeks ago and never returned, and he states that he misunderstood and he thought he was told to never return. I told him that was very unlikely what was said and that we would never tell anybody not to come back to the hospital. He apologizes yet states that he will again sign out AGAINST MEDICAL ADVICE today so that he can go home and shower and change his close and that he plans on returning. He understands the risk of ND, , or other disability if he does get worse and indeed have acute coronary syndrome. ED Disposition - Plan for ED Patient: Disposition: Against Medical Advice Diagnosis: Chest pain Instructions: ED Chest Pain Atypical Unkn Cause Referrals: Yuval Rodriugez MD [Primary Care Provider] - As soon as possible (or return to ER [facility])
[2020-08-30 09:20] LABS: Absolute Lymphocyte Count 1.82 X10^3/uL (0.83-4.51); Absolute Neutrophil Count 4.1 X10^3/uL (2.0-7.7); Basophil# 0.03 X10^3/uL; Basophil% 0.4 % (0-1); Eosinophil# 0.08 X10^3/uL; Eosinophils% 1.2 % (0-5); Hematocrit 45.9 % (40-54); Hemoglobin 15.6 g/dL (13.0-16.5); Lymphocyte # 1.82 X10^3/ul (4.0); Lymphocyte % 26.8 % (19-41); Mean Corpuscular Hgb 33.3 pg (27.0-32.0); Mean Corpuscular Volume 97.9 fL (80-94); Mean Platelet Vol. 9.6 fl (6.2-12.0); Monocyte# 0.76 X10^3/uL; Monocyte% 11.2 % (0-10); NRBC Flagged by Analyzer 0 % (0-5); Neutrophil # 4.07 X10^3/uL (2.7-7.7); Platelet Count 208 K/mm3 (150-450); RBC Distribution Width CV 12.8 % (11.6-14.6); RBC Distribution Width SD 45.5 fl (35.1-43.9); Red Blood Count 4.69 M/mm3 (4.6-6.2); White Blood Count 6.8 K/mm3 (4.4-11.0)
[2020-08-30 09:23] VITALS: O2SAT 98
[2020-08-30 09:25] VITALS: BP 137/82; PULSE 84
[2020-08-30] MEDS: Nitroglycerin Oint 1 INCH PACKET TRANSDERM. (09:25)
[2020-08-30 09:37] LABS: Anion Gap 4 (5-15); BUN 9 mg/dL (7-18); BUN/Creat Ratio 10.9 RATIO (10-20); Calcium,Total 8.7 mg/dL (8.5-10.1); Chloride 101 mmol/L (98-107); Creatinine, Serum 0.82 mg/dL (0.70-1.30); EST Glomerular Filtration Rate 102 mL/min (>60); Est Glom Filt Rate - Afr Amer 124 mL/min (>60); Estimated Creatinine Clearance 98.17 ml/min; Glucose 76 mg/dL (74-106); Potassium 4.3 mmol/L (3.5-5.1); Sodium Level 135 mmol/L (136-145)
[2020-08-30 09:55] VITALS: BP 125/90; PULSE 73; RESP 20; O2SAT 99
[2020-08-30 10:00] VITALS: BP 125/90; PULSE 73; RESP 20; O2SAT 99
[2020-08-30 10:47] VITALS: BP 131/84; PULSE 74; RESP 22; O2SAT 97
--- NOTE | 2020-08-30 10:48 | ED.RN ---
THIS NURSE REVIEWED D/C AND AMA INSTRUCTIONS WITH PT. PT VERBALIZED UNDERSTANDING OF INSTRUCTIONS. IV D/C. IV CATHETER INTACT. PT TOLERATED WELL. NITRO PASTE REMOVED. PT DENIES FURTHER NEEDS OR QUESTIONS AT THIS TIME.
== END 2020-08-30 10:49 | disposition left against medical advice (07) ==
PROVIDERS: Emergency Provider Emergency Medicine; PCP Family Medicine
DX: R07.9 Chest pain, unspecified (principal); R06.00 Dyspnea, unspecified; R42 Dizziness and giddiness; I71.2 Thoracic aortic aneurysm, without rupture; F17.200 Nicotine dependence, unspecified, uncomplicated; I49.1 Atrial premature depolarization
CPT/HCPCS: 71045; 80048; 84484; 85025; 93005; 94760; 99283; 99285; A4216

== ENCOUNTER 2021-02-15 11:18 | Emergency (ER) | payer BC, SELFPAY ==
[2021-02-15 11:18] VITALS: BP 136/88; PULSE 79; RESP 18; TEMP 36.7; O2SAT 98; BMI 20.9
--- NOTE | 2021-02-15 11:38 | EKG12_ITS ---
Test Reason : CP Blood Pressure : / mmHG Vent. Rate : 077 BPM Atrial Rate : 077 BPM P-R Int : 122 ms QRS Dur : 090 ms QT Int : 374 ms P-R-T Axes : 059 042 026 degrees QTc Int : 423 ms Sinus rhythm with marked sinus arrhythmia Otherwise normal ECG Confirmed by SHANNA SAUNDERS, BEHZAD ([id number]), editor continuity and script JOSELITO DOBBINS ([id number]) on 02/16/2021 12:50:27 PM Referred By: AMAURY Confirmed By:BEHZAD OTERO MD
--- NOTE | 2021-02-15 11:45 | ED.DCSUM_ITS ---
History of Present Illness Chief Complaint: Chest Pain Informant: Patient Narrative: Patient is a 55-year-old male who states that he has a aneurysm which he is not sure the size or location. He believes it is 4 range. He had an hour episode of left-sided stabbing chest pain. He had pain going down his left arm. He has never had this before. He was given nitro which did relieve his chest pain. He denies any personal history of CAD, DVT/PE. He has a significant family history with multiple brothers and sisters having a heart attack in his father passing away from 1. Denies shortness of breath associated with this. No leg swelling or calf pain. He denies any abdominal pain. He is completely asymptomatic at this time. He did not get nauseous or have any diaphoresis. He denies any recent illness including any cough or fever/chills. He is a current every day smoker. He denies any drug use. Past Medical History - Allergies and Home Meds Allergies/Adverse Reactions: Allergies No Known Allergies Allergy (Verified 02/15/21 11:20) Primary Care Physician: Yuval Lynch MD [STAFF PHYSICIAN] - As soon as possible Yuval Rodriguez MD [Primary Care Provider] - Prior records reviewed: Yes Surgical History: noncontributory Smoking Status: Current every day smoker Review of Systems All systems negative except as indicated General: Denies: Chills, Fever, Sweats Eyes: Denies: Visual changes - bilaterally, Diplopia ENT: Denies: Rhinorrhea, Sore throat Cardiovascular: Reports: Chest pain. Denies: Palpitations Respiratory: Denies: Dyspnea, Cough, Dyspnea on exertion Gastrointestinal: Denies: Abdominal pain, Nausea, Vomiting, Diarrhea, Melena, Hematochezia Genitourinary: Denies: Dysuria, Hematuria, Frequency Musculoskeletal: Denies: Back pain, Extremity Pain Skin: Denies: Rash, Wounds Neurological: Denies: Headache, Weakness, Numbness Physical Exam Vital Signs/Narrative: Vital Signs Temp Pulse Resp BP Pulse Ox 02/15/21 11:18 98.1 F 79 18 136/88 H 98 Inital Vital Signs reviewed: Yes General: Well nourished, Well developed, No Acute Distress Head: Normocephalic, Atraumatic Eyes: Perrl, EOMI ENT: Moist mucous membranes, No rhinorrhea Neck: Supple, Nontender Cardiovascular: Regular rate, Regular rhythm, No murmurs Respiratory: No distress, CTA bilaterally, Chest nontender Abdomen: Soft, Nontender, Nondistended, Normal bowel sounds Back: Nontender, Normal Inspection Extremities: Nontender, No edema. Negative for: Calf Tenderness Skin: Normal color, No rash Neurological: Alert, Oriented x3, Cranial nerves II-XII grossly intact, Normal Strength, Normal Sensation Psychological: Normal affect, Normal Mood Diagnostic/Tx/Re-eval Chest X-Ray - ED: - - Single view portable x-ray interpreted by myself. Clear lung esqueda bilaterally. Normal mediastinum. Normal cardiac silhouette. No pleural effusions. No acute cardiopulmonary process. Agree with radiologist interpretation. - Medical Decision Making Patient presents to the ED for an episode of chest pain that has been relieved with nitro. He was given aspirin by EMS. Upon arrival to the ED has no complaints. He is mildly hypertensive but otherwise normal vital signs. EKG, chest x-ray basic lab work being obtained. Patient's lab work did not reveal any significant anemia. His troponin is negative. His CT scan of his chest showed a 4.3 centimeters aneurysms which is stable from his previous CT scan last year. With the significant family history, chest pain rating to the arm that was relieved by nitro I did recommend patient stay in the hospital for full cardiac work-up. Patient is adamant about not staying in the hospital. I told him he would have to sign out AGAINST MEDICAL ADVICE. Patient understands that he could be having a heart attack whi ch is life-threatening. She still does not want to stay in the hospital. He is agreeable to staying in the emergency department for repeat troponin test after 3 hours. Patient ended up changing his mind is no longer willing to stay for the repeat troponin test. He understands that he could have missed an elevation in the initial lab work. I do recommend he take a baby aspirin daily. Did make a cardiology referral which she needs to call today to schedule an appointment. Return precautions are reviewed with him and he had back at any time for hospitalization for full evaluation. He understands and is agreeable this plan. Patient is discharged AGAINST MEDICAL ADVICE. ED Disposition - Plan for ED Patient: Disposition: Against Medical Advice Diagnosis: Chest pain, Ascending aorta dilatation Instructions: ED Chest Pain, Uncertain Cause Referrals: Yuval Rodriguez MD [Primary Care Provider] - Yuval Lynch MD [STAFF PHYSICIAN] - As soon as possible
--- NOTE | 2021-02-15 11:45 | RAD_ITS ---
STUDY: X-RAY CHEST REASON FOR EXAM: Male, 55 years old. Chest pain TECHNIQUE: Single AP portable view of the chest. COMPARISON: Comparison is made with prior study 08/30/2020. FINDINGS: EKG electrodes are seen. There is hyperinflation of the lungs consistent with chronic obstructive lung disease (COPD). There is no demonstrated pleural abnormality. Normal size heart. Normal mediastinum and marlena. Normal visualized pulmonary arteries. There is atherosclerotic calcification of the aortic arch with tortuosity. There are degenerative changes of the visualized thoracic spine. Normal visualized ribs, clavicles, and shoulders. There is no demonstrated abnormality of the visualized soft tissue structures of the upper abdomen. RAD/Chest 1 View (Portable) IMPRESSION: Hyperinflation. The lungs are clear. Electronically Signed: Gerardo John MD at 12:19 EDT , Service support ,
--- NOTE | 2021-02-15 11:49 | CT_ITS ---
STUDY: CT CHEST WITH CONTRAST REASON FOR EXAM: Male, 55 years old. CP, hx of aneurysm RADIATION DOSAGE (If Supplied By Facility): CTDIvol = ( 12.72 ) mGy, DLP = ( 347.62 ) mGycm TECHNIQUE: Transaxial imaging was performed following intravenous administration of 100 cc of ISOVUE-300.. Multiplanar coronal and sagittal images were reformatted. Individualized dose optimization techniques were used for this CT. COMPARISON: Comparison is made with prior examination dated 08/21/2020. FINDINGS: Hyperinflation. The lungs are clear. There is no demonstrated pleural abnormality. There are calcifications of the coronary arteries. Normal mediastinum. Normal hilar regions. Normal enhanced pulmonary arteries. Mild dilatation of the proximal ascending aorta with a transverse dimension of 42.8 mm. Atherosclerotic plaque formation of the aortic arch. There are mild degenerative changes of the thoracic spine. There is no demonstrated abnormality of the visualized upper abdomen. CT/Chest WITH Contrast IMPRESSION: The proximal ascending aorta measures 42.8 mm. Hyperinflation. Electronically Signed: Gerardo John MD at 12:35 EDT , Service support ,
[2021-02-15 11:53] LABS: Absolute Neutrophil Count 4.1 X10^3/uL (2.0-7.7); Basophil# 0.04 X10^3/uL; Basophil% 0.6 % (0-1); Eosinophil# 0.03 X10^3/uL; Eosinophils% 0.5 % (0-5); Hematocrit 43.6 % (40-54); Hemoglobin 14.9 g/dL (13.0-16.5); Lymphocyte % 23.6 % (19-41); Mean Corp Hgb Conc 34.2 g/dL (32-36); Mean Corpuscular Hgb 33.8 pg (27.0-32.0); Mean Corpuscular Volume 98.9 fL (80-94); Mean Platelet Vol. 9.6 fl (6.2-12.0); Monocyte# 0.71 X10^3/uL; Monocyte% 11.2 % (0-10); NRBC Flagged by Analyzer 0 % (0-5); Neutrophil # 4.05 X10^3/uL (2.7-7.7); Neutrophil % 63.6 % (47-70); Platelet Count 209 K/mm3 (150-450); RBC Distribution Width CV 12.4 % (11.6-14.6); RBC Distribution Width SD 45.3 fl (35.1-43.9); Red Blood Count 4.41 M/mm3 (4.6-6.2); White Blood Count 6.4 K/mm3 (4.4-11.0)
[2021-02-15 12:09] LABS: Anion Gap 0 (5-15); BUN 9 mg/dL (7-18); BUN/Creat Ratio 11.6 RATIO (10-20); Calcium,Total 8.5 mg/dL (8.5-10.1); Chloride 105 mmol/L (98-107); Creatinine, Serum 0.78 mg/dL (0.70-1.30); EST Glomerular Filtration Rate 109 mL/min (>60); Est Glom Filt Rate - Afr Amer 132 mL/min (>60); Estimated Creatinine Clearance 103.31 ml/min; Glucose 93 mg/dL (74-106); Magnesium 1.9 mg/dL (1.6-2.6); Potassium 4.1 mmol/L (3.5-5.1); Sodium Level 134 mmol/L (136-145)
[2021-02-15 12:18] VITALS: BP 122/81; PULSE 68; RESP 18; O2SAT 98
[2021-02-15 13:00] VITALS: BP 142/105; PULSE 65; RESP 16; O2SAT 98
--- NOTE | 2021-02-15 13:33 | ED.RN ---
PT STATES HE DOES NOT WANT TO STAY FOR SECOND TROPONIN. DR STOUT MADE AWARE AND EDUCATED PT ON IMPORTANCE OF STAYING FOR THE TEST. PT STILL WANTS TO LEAVE AMA. AMA PAPER SIGNED AND PT REFUSING COPY AT THIS TIME. 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
[2021-02-15 13:36] VITALS: BP 145/105; PULSE 81; RESP 18; O2SAT 98
== END 2021-02-15 13:37 | disposition left against medical advice (07) ==
PROVIDERS: Emergency Provider Emergency Medicine; PCP Family Medicine
DX: R07.9 Chest pain, unspecified (principal); I77.810 Thoracic aortic ectasia; F17.200 Nicotine dependence, unspecified, uncomplicated; Z63.4 Disappearance and death of family member; Z82.49 Family history of ischemic heart disease and other diseases of the circulatory system
CPT/HCPCS: 71045; 71260; 80048; 83735; 84484; 85025; 93005; 99285; Q9967; A4216

== ENCOUNTER → 2021-03-21 06:40 | Outpatient (CLI) | payer BC, SELFPAY ==
--- NOTE | 2021-03-21 17:57 | STRESSREP_ITS ---
Stress Test Report Exercise myocardial perfusion stress test. 55-year-old man with abnormal CTA. Coronary calcification was noted. Resting EKG demonstrates normal sinus rhythm with a rate of 75 bpm normal intervals are noted resting blood pressures 142/90 mmHg. The patient exercised according to regular Jorge protocol for total duration of 3 minutes. The m aximum heart rate attained was 153 bpm which was 93% of maximum predicted heart rate the maximum workload was 4.6 metabolic equivalents. At rest there were no ST or T wave changes noted to suggest ischemia at peak exercise upsloping ST changes were noted with did not meet the criteria for ischemia. No clinical angina was noted the test was terminated due to severe dyspnea. The peak blood pressure was noted to be 210/88 mmHg which was hypertensive response to exercise. Myocardial perfusion protocol. 11.9 mCi of technetium 99m sestamibi was injected at rest. The patient exercised according to regular Jogre protocol for 3 minutes and at peak exercise 31.3 mCi of technetium 99m sestamibi was injected stress images were obtained stress and rest images were reconstructed and compared in the short axis vertical long horizontal long axis. Gated images were also obtained to Perfusion SPECT analysis: Review of the stress images demonstrate normal uptake of tracer noted in all areas of the myocardium. The resting images similarly demonstrated normal uptake of tracer noted in all areas of the myocardium. No areas of reversibility are noted to suggest ischemia and no previous infarct was noted. Gated SPECT analysis: The gated ejection fraction was noted to be 56%. Conclusion: Exercise myocardial perfusion stress test with no evidence of ischemia at a low workload. Marked functional aerobic impairment. The low workload attained reduces the sensitivity for detection of ischemia.
== END ==
LOC: CVS 06:41
PROVIDERS: PCP Family Medicine; Referring Provider Internal Medicine Cardiovascular Disease; Visit Provider Internal Medicine Cardiovascular Disease
DX: R07.9 Chest pain, unspecified (principal); R06.00 Dyspnea, unspecified; I10 Essential (primary) hypertension; I71.2 Thoracic aortic aneurysm, without rupture; F17.200 Nicotine dependence, unspecified, uncomplicated
CPT/HCPCS: 78452; 93017; A9500; A4216

== ENCOUNTER 2021-03-23 08:20 | Day surgery (SDC) | payer BC, SELFPAY ==
[2021-03-23 08:30] LABS: Absolute Lymphocyte Count 2.26 X10^3/uL (0.83-4.51); Absolute Neutrophil Count 3.6 X10^3/uL (2.0-7.7); Basophil# 0.06 X10^3/uL; Basophil% 0.9 % (0-1); Eosinophil# 0.13 X10^3/uL; Eosinophils% 1.8 % (0-5); Hematocrit 46.8 % (40-54); Hemoglobin 16.3 g/dL (13.0-16.5); Lymphocyte # 2.26 X10^3/ul (0.83-4.51); Lymphocyte % 32.1 % (19-41); Mean Corp Hgb Conc 34.8 g/dL (32-36); Mean Corpuscular Hgb 33.9 pg (27.0-32.0); Mean Corpuscular Volume 97.3 fL (80-94); Mean Platelet Vol. 9.2 fl (6.2-12.0); Monocyte# 1.01 X10^3/uL; Monocyte% 14.3 % (0-10); NRBC Flagged by Analyzer 0 % (0-5); Neutrophil # 3.55 X10^3/uL (2.7-7.7); Neutrophil % 50.5 % (47-70); Platelet Count 264 K/mm3 (150-450); RBC Distribution Width CV 12.8 % (11.6-14.6); RBC Distribution Width SD 46.5 fl (35.1-43.9); Red Blood Count 4.81 M/mm3 (4.6-6.2)
[2021-03-23 08:49] LABS: Anion Gap 4 (5-15); BUN 7 mg/dL (7-18); BUN/Creat Ratio 9.3 RATIO (10-20); Calcium,Total 9.3 mg/dL (8.5-10.1); Chloride 102 mmol/L (98-107); Creatinine, Serum 0.76 mg/dL (0.70-1.30); EST Glomerular Filtration Rate 113 mL/min (>60); Est Glom Filt Rate - Afr Amer 137 mL/min (>60); Estimated Creatinine Clearance 101.83 ml/min; Glucose 82 mg/dL (74-106); Potassium 4.9 mmol/L (3.5-5.1); Sodium Level 134 mmol/L (136-145)
--- NOTE | 2021-03-23 10:29 | CL.D_ITS ---
Patient Name: SALVATORE LEONG Study Date: 03/23/2021 Performing: Venancio Mane MD Ht: 72.04 inches 183 cm : 1965 Wt: 147.71 lbs 67 kg Age: 55 Gender: male BSA: 1.87 PROCEDURE(S) PERFORMED MI21-UPC/COR/LV CLINICAL PROFILE AND INDICATIONS Indications: Suspected CAD Heart Failure: None Stress/Imaging Date: 03/21/21ress Test with SPECT MPI: Indeterminant CAD Presentations: Other: sob CONCLUSIONS Moderate CAD in mid LAD with moderate calcification and severe disease of a small first diagonal vess el RECOMMENDATIONS ASA Indefinitely Risk factor modification Medical therapy DESCRIPTION OF PROCEDURE The patient arrived to the procedure lab. The risks and benefits of the procedure as well as a full d escription of our services here and current unavailability of surgical backup were fully explained to the patient and/or their significant other prior to the catheterization. The Timeout was completed, verifying the correct patient and procedure. The patient's procedural site was prepped and draped in the usual fashion. Local anesthetic was given subcutaneously to right radial region with Lidocaine 2% . Using a modified Seldinger technique, arterial access was obtained via the right radial artery, a 6 Fr sheath was inserted. Left Coronary Artery selective angiography was performed in multiple views u sing a 5 Fr. 4.0 Lincoln catheter. Right Coronary Artery selective angiography was then performed in mu ltiple views using a 5 Fr. 4.0 Lincoln catheter. Left Ventriculography was performed in GOMEZ projection using a 5 Fr. Pigtail catheter. LV to AO pullback pressures were then recorded.The arterial sheath was pulled and a TR Band was applied for hemostasis CORONARY ANGIOGRAPHY DOMINANCE: Right Dominant LEFT HEART ASSESSMENT Left Ventricular Ejection Fraction: by LV Gram 65 % Normal Left Ventricular systolic function LEFT MAIN: Mild calcification, No significant disease noted LEFT ANTERIOR DESCENDING ARTERY: PROX LAD: Moderate calcification, Moderate luminal irregularities up to 50% DIAGONAL 3: Ostial - 80 % Stenosis CIRCUMFLEX ARTERY: Mild luminal irregularities RIGHT CORONARY ARTERY: Mild luminal irregularities COMPLICATIONS No Complications PROCEDURE MEDICATIONS Fentanyl 50 mcg IV Versed 1 mg IV Versed 1 mg IV Oxygen: 2 L/min via nasal cannula Baby Aspirin (81mg) 1 Tabs PO @ 03/23/2021 08:50:09 Heparin diluted in 23cc Heparinized saline. Patient given 10cc IA of this solution. 03/23/2021 10:10:4 4 Verapamil 2.5mg, Ntg 100mcgs, 2000 units of Heparin diluted in 23cc Heparinized saline. Patient give n 10cc IA of this solution. 03/23/2021 10:10:44 SUMMARY OF HEMODYNAMIC DATA Time AIR REST ECG 08:48:01 AO 109/85 (96) SA 10:13:55 LV 110/17, 19 10:19:06 LV 102/16, 18 10:19:13 LV 102/19, 21 10:20:18 LVp 100/18, 23 10:20:22 AOp 116/87 (101) 10:20:27 Signed By Venancio Mane MD On 03/23/2021 10:29:14 Venancio Mane MD
== END 2021-03-23 12:15 | disposition home or self-care (01) ==
PROVIDERS: Referring Provider Internal Medicine Cardiovascular Disease; Visit Provider Internal Medicine Cardiovascular Disease
DX: I25.10 Atherosclerotic heart disease of native coronary artery without angina pectoris (principal); R06.02 Shortness of breath; R07.89 Other chest pain; Z79.899 Other long term (current) drug therapy; Z79.82 Long term (current) use of aspirin; I10 Essential (primary) hypertension; R91.1 Solitary pulmonary nodule; Z82.49 Family history of ischemic heart disease and other diseases of the circulatory system; F17.200 Nicotine dependence, unspecified, uncomplicated; I71.2 Thoracic aortic aneurysm, without rupture
CPT/HCPCS: 36415; 80048; 85025; 93458; 99152; 99153; J7040; Q9967; C1769; C1894

== ENCOUNTER → 2021-03-28 14:25 | Outpatient (CLI) | payer BC, SELFPAY | LOC: CVS 14:26 | PROVIDERS: Referring Provider Internal Medicine Cardiovascular Disease; Visit Provider Internal Medicine Cardiovascular Disease | DX: R09.89 Other specified symptoms and signs involving the circulatory and respiratory systems (principal); S55.101A Unspecified injury of radial artery at forearm level, right arm, initial encounter | CPT/HCPCS: 93931 ==

== ENCOUNTER → 2021-04-25 10:45 | Outpatient (CLI) | payer BC, SELFPAY | LOC: CVS 10:48 | PROVIDERS: Referring Provider Nurse Practitioner Family; Visit Provider Nurse Practitioner Family | DX: I70.208 Unspecified atherosclerosis of native arteries of extremities, other extremity (principal) | CPT/HCPCS: 93931 ==

== ENCOUNTER 2021-11-19 15:08 | Emergency (ER) | payer BC, SELFPAY ==
[2021-11-19 15:24] VITALS: BP 102/78; PULSE 83; RESP 16; TEMP 36.3; O2SAT 90; BMI 21.9
[2021-11-19 17:04] LABS: Absolute Lymphocyte Count 1.51 X10^3/uL (0.83-4.51); Absolute Neutrophil Count 8.5 X10^3/uL (2.0-7.7); Basophil# 0.06 X10^3/uL; Basophil% 0.5 % (0-1); Eosinophil# 0.01 X10^3/uL; Eosinophils% 0.1 % (0-5); Hemoglobin 17.8 g/dL (13.0-16.5); Lymphocyte # 1.51 X10^3/ul (0.83-4.51); Lymphocyte % 13.1 % (19-41); Mean Corp Hgb Conc 35.6 g/dL (32-36); Mean Corpuscular Hgb 33.5 pg (27.0-32.0); Mean Platelet Vol. 9.4 fl (6.2-12.0); Monocyte# 1.41 X10^3/uL; Monocyte% 12.2 % (0-10); NRBC Flagged by Analyzer 0 % (0-5); Neutrophil # 8.47 X10^3/uL (2.7-7.7); Neutrophil % 73.5 % (47-70); Platelet Count 258 K/mm3 (150-450); RBC Distribution Width CV 12.6 % (11.6-14.6); RBC Distribution Width SD 43.8 fl (35.1-43.9); Red Blood Count 5.32 M/mm3 (4.6-6.2); White Blood Count 11.5 K/mm3 (4.4-11.0)
[2021-11-19 17:15] LABS: Anion Gap 9 (5-15); BUN 24 mg/dL (7-18); BUN/Creat Ratio 24.9 RATIO (10-20); Calcium,Total 9.7 mg/dL (8.5-10.1); Chloride 93 mmol/L (98-107); Creatinine, Serum 0.96 mg/dL (0.70-1.30); EST Glomerular Filtration Rate 85 mL/min (>60); Est Glom Filt Rate - Afr Amer 103 mL/min (>60); Estimated Creatinine Clearance 87.17 ml/min; Glucose 85 mg/dL (74-106); Sodium Level 129 mmol/L (136-145)
--- NOTE | 2021-11-19 18:22 | EKG12_ITS ---
Test Reason : ABD PAIN Blood Pressure : / mmHG Vent. Rate : 088 BPM Atrial Rate : 088 BPM P-R Int : 112 ms QRS Dur : 088 ms QT Int : 346 ms P-R-T Axes : 068 060 059 degrees QTc Int : 418 ms Normal sinus rhythm with sinus arrhythmia Normal ECG Confirmed by SHANNA SAUNDERS, BEHZAD ([id number]), editorial assistant MARA CARLSON ([id number]) on 11/20/2021 10:54:29 AM Referred By: MARKUS Confirmed By:BEHZAD OTERO MD
[2021-11-19 18:24] VITALS: BP 118/92; PULSE 98; RESP 17; O2SAT 97
--- NOTE | 2021-11-19 18:24 | EX.ED.DYSGE1 ---
HPI History of Present Illness Chief Complaint: Abd Pain Informant: patient Narrative Narrative: 56-year-old male states that since Friday he has felt fatigued, chilled, vomiting and diarrhea, cough, dyspnea and lack of appetite. He has not taken his temperature at home. He notes previous medical history of chronic bronchitis and tobacco abuse, known thoracic aneurysm hypertension and hyperlipidemia. He states that he is spent almost all days in bed. [facility] Medical History Chronic bronchitis Essential (primary) hypertension Hyperlipidemia Lung nodule Nicotine dependence Nonobstructive atherosclerosis of coronary artery Thoracic aortic aneurysm (TAA) Home Medications aspirin 81 mg tablet,delayed release 81 mg PO DAILY 02/20/21 [History Last Taken 03/23/21] lisinopril 20 mg tablet 20 mg PO DAILY #90 tablet 02/20/21 [Rx Last Taken 03/23/21] simvastatin 20 mg tablet 20 mg PO QHS #90 tab 03/23/21 [Rx Last Taken Unknown] rivaroxaban 20 mg tablet 20 mg PO DAILY #30 tab 03/28/21 [Rx Last Taken Unknown] ondansetron 4 mg PO Q6H PRN PRN #15 tab 11/19/21 [Rx Last Taken Unknown] Allergy/AdvReac Type Severity Reaction Status Date / Time No Known Allergies Allergy Verified 11/19/21 15:28 Family History Father Hypertension Myocardial infarction Mother Hypertension Sister CAD (coronary artery disease), Onset Age: 58 Myocardial infarction Brother Myocardial infarction Surgical History History of left heart catheterization (03/23/21) Social History Smoking Status: Current every day smoker tobacco type: cigarettes alcohol intake: current Alcohol type: beer substance use type: marijuana ROS ROS ED Constitutional Constitutional ED: Reports chills; Denies fever(s) or weight loss Eyes Eyes: Denies change in vision or diplopia ENT ENT ED: Reports rhinorrhea and sore throat; Denies ear pain Cardiovascular Cardiovascular: Denies chest pain, orthopnea, palpitations or racing heartbeat Respiratory/Chest Respiratory/Chest: Reports cough; Denies dyspnea or orthopnea Gastrointestinal Gastrointestinal: Reports diarrhea, nausea and vomiting; Denies abdominal pain Genitourinary Genitourinary ED: Denies dysuria, hematuria or urinary frequency Musculoskeletal Musculoskeletal: Reports myalgias; Denies arthralgias Integumentary Denies abscess or rash Neurologic Neurologic: Reports headache(s); Denies weakness Psychiatric Psychiatric: Denies anxiety, depression, suicidal ideation or suicidal thoughts Endocrine Endocrinology: Denies polydipsia, polyphagia or polyuria Allergic/Immunologic Allergic/Immunologic ED: Denies mouth swelling, tongue swelling or urticaria EXAM Physical Exam Const Vital Signs: 11/19/21 15:24 11/19/21 18:24 11/19/21 22:02 Temperature 97.4 F L Temperature Source Temporal Pulse Rate 83 98 100 Respiratory Rate 16 17 26 H Blood Pressure 102/78 118/92 H 133/84 H Blood Pressure Mean 86 100 100 Pulse Ox 90 97 100 Oxygen Delivery Method Room Air Room Air Room Air Positive well nourished and well developed General Appearance ED: well developed HEENT Reports normocephalic, head/scalp atraumatic, TM's clear and moist mucous membranes Negative for trauma Tympanic Membrane ED: Yes TM's clear Eyes PERRL and EOMs intact bilaterally Neck no lymphadenopathy, supple and no JVD Resp normal respiratory effort and clear to auscultation bilaterally Cardio regular rate, regular rhythm and no murmurs GI normal to inspection, nondistended, normoactive bowel sounds and non-tender Palpation: soft Back/Spine no CVA tenderness and normal ROM Extremity normal to inspection General Extremety ED: Negative for edema General Extremity: Negative for edema Neuro oriented x3 and CN's II-XII intact bilaterally Sensorium / Orientation: alert Motor Exam: strength 5/5 throughout Psych mental status grossly normal Mood & Affect: Negative for depressed or tearful Skin no rashes or lesions noted and no wounds MDM MDM MDM Narrative Medical decision making narrative: Basic blood work showed a white count of 12.5. BMP with a sodium of 129 BUN 24 creatinine 0.96. Liver enzymes normal and urinalysis no overt infection. Patient received Zofran and IV fluids. CT of the abdomen pelvis does not demonstrate any colitis. Is most likely a viral gastroenteritis. His Covid swab is negative. I will write for Zofran for home and as needed Imodium. Return if worsening or concerns Lab Data Attestation: I reviewed the patient's lab results. Labs: Laboratory Results - last 24 hr 11/19/21 11/19/21 11/19/21 16:50 16:50 18:50 WBC 11.5 H 12.5 H RBC 5.32 5.01 Hgb 17.8 H 16.7 H Hct 50.0 47.8 MCV 94.0 95.4 H MCH 33.5 H 33.3 H MCHC 35.6 34.9 RDW Std Deviation 43.8 44.6 H RDW Coeff of Laura 12.6 12.7 Plt Count 258 261 MPV 9.4 9.4 Immature Gran % (Auto) 0.600 0.600 Neut % (Auto) 73.5 H 74.5 H Lymph % (Auto) 13.1 L 12.4 L Moca % (Auto) 12.2 H 12.1 H Eos % (Auto) 0.1 0.1 Baso % (Auto) 0.5 0.3 Absolute Neuts (auto) 8.5 H 9.3 H Absolute Lymphs (auto) 1.51 1.54 Nucleated RBC % 0 0 Differential Comment SCANNED Diff Path Review May foll Sodium 129 L Potassium 5.0 Chloride 93 L Carbon Dioxide 27.0 Anion Gap 9 BUN 24 H Creatinine 0.96 Estim Creat Clear Calc 87.17 Est GFR (MDRD) Af Amer 103 Est GFR (MDRD) Non-Af 85 BUN/Creatinine Ratio 24.9 H Glucose 85 Calcium 9.7 Total Bilirubin AST ALT Alkaline Phosphatase Troponin I High Sens Total Protein Albumin Globulin Albumin/Globulin Ratio Urine Color Urine Clarity Urine pH Ur Specific [place] Urine Protein Urine Glucose (UA) Urine Ketones Urine Occult Blood Urine Nitrite Urine Bilirubin Urine Urobilinogen Ur Leukocyte Esterase Urine RBC Urine WBC Ur Squamous Epith Cells Urine Bacteria Urine Mucus 11/19/21 11/19/21 18:50 18:50 WBC RBC Hgb Hct MCV MCH MCHC RDW Std Deviation RDW Coeff of Laura Plt Count MPV Immature Gran % (Auto) Neut % (Auto) Lymph % (Auto) Moca % (Auto) Eos % (Auto) Baso % (Auto) Absolute Neuts (auto) Absolute Lymphs (auto) Nucleated RBC % Differential Comment Diff Path Review Sodium 130 L Potassium 4.6 Chloride 96 L Carbon Dioxide 26.0 Anion Gap 8 BUN 23 H Creatinine 0.97 Estim Creat Clear Calc 86.28 Est GFR (MDRD) Af Amer 102 Est GFR (MDRD) Non-Af 84 BUN/Creatinine Ratio 23.6 H Glucose 83 Calcium 9.4 Total Bilirubin 1.10 H AST 25 ALT 31 Alkaline Phosphatase 58 Troponin I High Sens 7 Total Protein 7.9 Albumin 3.5 Globulin 4.4 H Albumin/Globulin Ratio 0.8 L Urine Color Yellow Urine Clarity Clear Urine pH 5.0 Ur Specific [place] 1.020 Urine Protein 15 H Urine Glucose (UA) Normal Urine Ketones 50 H Urine Occult Blood 50 H Urine Nitrite Negative Urine Bilirubin Negative Urine Urobilinogen Normal Ur Leukocyte Esterase 100 H Urine RBC 0-5 SEEN Urine WBC 0-5 SEEN Ur Squamous Epith Cells 0 SEEN Urine Bacteria 0 SEEN Urine Mucus 0 SEEN Radiography Diagnostic Testing: Clinical Impression(s) from Imaging Studies Chest X-Ray 11/19/21 18:30 IMPRESSION: Mild hyperinflation. No acute cardiopulmonary pathology. Electronically Signed: Mario Marti MD at 19:57 EST , Service support , Abdomen/Pelvis CT 11/19/21 20:27 IMPRESSION: Findings consistent with nonspecific gastritis and ileus concentric thickening of the puga of the terminal ileum consistent with nonspecific ileitis. No evidence for small bowel obstruction Normal appendix Electronically Signed: Mario Marti MD at 22:08 EST , Service support , EKG Initial EKG: Attestation: I personally reviewed and interpreted this EKG as follows: Comments: Normal sinus rhythm with sinus arrhythmia and a ventricular rate of 88 bpm. Prior EKG tracings: available for review Prior: Unchanged Discharge Plan Triage Chief Complaint: Abd Pain ED Provider: Willian Gutierres Dx/Rx/DC Orders Clinical Impression: Gastroenteritis Instructions: ED Gastroenteritis, Viral (Adult) Prescriptions: New ondansetron [ondansetron] 4 MG tablet 4 mg PO Q6H PRN PRN (Reason: Nausea) Qty: 15 RF: 0 No Action aspirin [Adult Low Dose Aspirin] 81 mg tablet,delayed release (DR/EC) 81 mg PO DAILY RF: 0 lisinopril 20 mg tablet 20 mg PO DAILY Qty: 90 RF: 3 simvastatin 20 mg tablet 20 mg PO QHS Qty: 90 RF: 3 Xarelto 20 mg tablet 20 mg PO DAILY Qty: 30 RF: 3 Primary Care Provider: Care Physician,No Primary Referrals: Care Physician,No Primary [Primary Care Provider] - Herber Reed ENTERPRISE APPLICATION ARCHITECT, ENTERPRISE APPLICATION ARCHITECT-C [Nurse Practitioner] - As Needed (for primary care ) Disposition Disposition: Home, Self Care
--- NOTE | 2021-11-19 18:30 | RAD_ITS ---
STUDY: X-RAY CHEST REASON FOR EXAM: Male, 56 years old. dyspnea TECHNIQUE: AP portable COMPARISON: 02/15/2021 FINDINGS: Lungs appear mildly hyperinflated but clear.. There is no demonstrated pleural abnormality. Normal size heart. Normal mediastinum and marlena. Normal visualized pulmonary arteries. Normal visualized aortic arch and descending thoracic aorta. Dorsal spine demonstrates degenerative changes.. Normal visualized ribs, clavicles, and shoulders. There is no demonstrated abnormality of the visualized soft tissue structures of the upper abdomen. RAD/Chest 1 View (Portable) IMPRESSION: Mild hyperinflation. No acute cardiopulmonary pathology. Electronically Signed: Mario Marti MD at 19:57 EST , Service support ,
[2021-11-19] MEDS: 0.9% Normal Saline 1,000 ML 1000 ML IV (18:33)
[2021-11-19] MEDS: Ondansetron 4 MG/2 ML Vial IV (18:33)
[2021-11-19 19:02] LABS: Bacteria 0 SEEN /hpf (None Seen); Mucous, Urine 0 SEEN /hpf (<or=2+); Squamous Epithelial Cells - UA 0 SEEN /hpf (0-5)
[2021-11-19 19:04] LABS: Absolute Lymphocyte Count 1.54 X10^3/uL (0.83-4.51); Absolute Neutrophil Count 9.3 X10^3/uL (2.0-7.7); Basophil# 0.04 X10^3/uL; Basophil% 0.3 % (0-1); Eosinophil# 0.01 X10^3/uL; Eosinophils% 0.1 % (0-5); Hematocrit 47.8 % (40-54); Hemoglobin 16.7 g/dL (13.0-16.5); Lymphocyte # 1.54 X10^3/ul (0.83-4.51); Lymphocyte % 12.4 % (19-41); Mean Corp Hgb Conc 34.9 g/dL (32-36); Mean Corpuscular Hgb 33.3 pg (27.0-32.0); Mean Corpuscular Volume 95.4 fL (80-94); Mean Platelet Vol. 9.4 fl (6.2-12.0); Monocyte# 1.51 X10^3/uL; Monocyte% 12.1 % (0-10); NRBC Flagged by Analyzer 0 % (0-5); Neutrophil # 9.28 X10^3/uL (2.7-7.7); Neutrophil % 74.5 % (47-70); POSITIVE DIFFERENTIAL YES; Platelet Count 261 K/mm3 (150-450); RBC Distribution Width CV 12.7 % (11.6-14.6); RBC Distribution Width SD 44.6 fl (35.1-43.9); Red Blood Count 5.01 M/mm3 (4.6-6.2); White Blood Count 12.5 K/mm3 (4.4-11.0)
[2021-11-19 19:08] LABS: Color, Urine Yellow (Yellow); Glucose, Dipstick Normal (Normal); Ketone-Dipstick 50 mg/dl (Negative); Leukocyte Esterase-Dipstick 100 /ul (Negative); Nitrite-Dipstick Negative (Negative); Occult Blood-Urine 50 /ul (Negative); Protein-Dipstick 15 mg/dl (Negative); Urine Bilirubin Dipstick Negative (Negative); Urine Clarity Clear (Clear); Urine Urobilinogen Normal (Normal)
[2021-11-19 19:17] LABS: Red Blood Cells-Urine 0-5 SEEN /hpf (0-5)
[2021-11-19 19:18] LABS: White Blood Cells 0-5 SEEN /hpf (0-5)
[2021-11-19 19:24] LABS: Differential Indicated SCAN CRITERIA MET
[2021-11-19 19:31] LABS: ALB/GLOB Ratio 0.8 RATIO (0.9-2.4); AST(SGOT) 25 U/L (15-37); Alanine Aminotransfer ALT/SGPT 31 U/L (16-61); Albumin, Serum 3.5 g/dL (3.2-5.0); Alkaline Phosphatase 58 U/L (45-117); Anion Gap 8 (5-15); BUN 23 mg/dL (7-18); BUN/Creat Ratio 23.6 RATIO (10-20); Calcium,Total 9.4 mg/dL (8.5-10.1); Chloride 96 mmol/L (98-107); Creatinine, Serum 0.97 mg/dL (0.70-1.30); Differential Comment SCANNED; EST Glomerular Filtration Rate 84 mL/min (>60); Est Glom Filt Rate - Afr Amer 102 mL/min (>60); Estimated Creatinine Clearance 86.28 ml/min; Globulin 4.4 g/dL (2.2-4.2); Glucose 83 mg/dL (74-106); Potassium 4.6 mmol/L (3.5-5.1); Protein, Total 7.9 g/dL (6.4-8.2); Sodium Level 130 mmol/L (136-145); Troponin-I HS 7 pg/mL (3.0-78.0)
--- NOTE | 2021-11-19 20:27 | CT_ITS ---
STUDY: CT ABDOMEN AND PELVIS WITH CONTRAST REASON FOR EXAM: Male, 56 years old. abdominal pain RADIATION DOSAGE (If Supplied By Facility): CTDIvol = ( 9.67 ) mGy, DLP = ( 449.31 ) mGycm TECHNIQUE: Transaxial images were obtained from the dome of the diaphragm to the symphysis pubis without oral contrast. IV 100mL Isovue-370 was administered. Sagittal and coronal images were reconstructed. Individualized dose optimization techniques were used for this CT. COMPARISON: None. FINDINGS: The visualized lung bases are unremarkable. The visualized portions of the heart are within normal limits. Nonspecific fatty infiltrated liver without mass or bile duct dilatation. Normal gallbladder and extrahepatic biliary system. Normal spleen. Normal pancreas. Normal bilateral adrenal glands. Normal right kidney. Normal left kidney. Mild narrowing of the puga of stomach which may be consistent with nonspecific gastritis. Mild diffuse ileus. There is concentric thickening of the puga of the distal ileum which may be consistent with nonspecific ileitis. No evidence for small bowel obstruction.. The appendix is visualized and appears normal. Atherosclerotic changes of the aorta without evidence for aneurysm. Normal inferior vena cava. Normal retroperitoneum. Nonspecific enlargement of prostate encroaching upon the base of bladder which is incompletely distended thick-walled Small amount of free fluid in the pouch of TREY. Normal abdominal wall. Lumbar spine demonstrates degenerative change CT/Abdomen/Pelvis W IV Cont ONLY IMPRESSION: Findings consistent with nonspecific gastritis and ileus concentric thickening of the puga of the terminal ileum consistent with nonspecific ileitis. No evidence for small bowel obstruction Normal appendix Electronically Signed: Mario Marti MD at 22:08 EST , Service support ,
[2021-11-19 22:28] VITALS: PULSE 74; RESP 16; O2SAT 96
[2021-11-20 14:21] LABS: Pathologist Review Reviewed
== END 2021-11-19 22:29 | disposition home or self-care (01) ==
PROVIDERS: Emergency Provider Emergency Medicine; Visit Provider Emergency Medicine
DX: K52.9 Noninfective gastroenteritis and colitis, unspecified (principal); F17.210 Nicotine dependence, cigarettes, uncomplicated; I10 Essential (primary) hypertension; I25.10 Atherosclerotic heart disease of native coronary artery without angina pectoris; E78.5 Hyperlipidemia, unspecified
CPT/HCPCS: 71045; 74177; 80048; 80053; 81001; 84484; 85025; 87426; 93005; 96361; 96374; 99285; J7030; Q9967; A4216; J2405